=== PATIENT | female | born 1945 | race Hispanic/Latino ===

== ENCOUNTER → 2018-06-03 | Day surgery (SDC) | payer MEDICARE, OTHER ==
[2018-05-31 13:29] LABS: BASOPHILS % 0.4 % (0.0-1.0); EOSINOPHILS # (AUTO) 0.1 (0.0-0.4); EOSINOPHILS % 0.7 % (0.0-6.0); HEMOGLOBIN 11.5 g/dL (12.0-16.0); LYMPHOCYTES # (AUTO) 1.5 (1.0-3.2); LYMPHOCYTES % 19.8 % (18.0-39.1); MEAN CORPUSCULAR HEMOGLOBIN 31.5 pg (28-32); MEAN CORPUSCULAR HGB CONC 32.9 g/dL (31-35); MEAN CORPUSCULAR VOLUME 95.9 fL (81-99); MONOCYTES # (AUTO) 0.7 (0.2-0.8); MONOCYTES % 9.3 % (4.4-11.3); NEUTROPHILS # (AUTO) 5.1 (2.1-6.9); NEUTROPHILS % 69.5 % (38.7-80.0); PLATELET COUNT 266 x10e3/uL (140-360); RED BLOOD COUNT 3.65 x10e6/uL (3.6-5.1); RED CELL DISTRIBUTION WIDTH 14.6 % (11.7-14.4)
[2018-05-31 13:49] LABS: ANION GAP 17.2 mmol/L (8-16); CREATININE, SERUM 1.07 mg/dL (0.57-1.11); POTASSIUM 4.2 mmol/L (3.5-5.1)
--- NOTE | 2018-05-31 15:08 | Diagnostic Imaging Report ---
EXAMINATION: CHEST 2 VIEWS INDICATION: \S\PREOP \[id number] \S\[id number] COMPARISON: Chest radiograph 11/25/2015 FINDINGS: PA and lateral views TUBES and LINES: None. LUNGS: Lungs are well inflated. Subsegmental atelectasis in the right and left lower lobe, unchanged. There is no evidence of pneumonia or pulmonary edema. PLEURA: No pleural effusion or pneumothorax. Left pleural effusion has resolved. HEART AND MEDIASTINUM: The cardiomediastinal silhouette is unremarkable. BONES AND SOFT TISSUES: No acute osseous lesion. Soft tissues are unremarkable. Persistent mild elevation of the right hemidiaphragm. UPPER ABDOMEN: No free air under the diaphragm. IMPRESSION: No acute thoracic abnormality. There is stable bibasilar atelectasis. Signed by: Dr. Julissa Obando M.D. on 05/31/2018 3:04 PM
[~2018-06-03] MED LIST: ACETAMINOPHEN 1000 MG/100 ML IV ONE; ATORVASTATIN CA10 MG PO; BACTRIM 400-801 EACH PO; BUDEPRION SR150 MG PO; BUPIVACAINE HCL 0.5% INJ 30 ML VIAL INJ ONE; CEFAZOLIN SOD 1 GM VIAL ONE; CITALOPRAM HBR20 MG PO; DEXAMETHASONE SOD PHOS INJ 4 MG/ML VIAL ONE; DULERA 100 MCG/13 GM; EPHEDRINE SULFATE INJ 50 MG/10 ML SYR ONE; FENTANYL CITRATE/PF 100MCG/2 ML INJ ONE; GLYCOPYRROLATE INJ 1MG/ 5 ML SYR ONE; KEFLEX500 MG PO; LEVOTHYROXINE112 MCG PO; LIDOCAINE HCL 2% LOCAL INJ 5 ML SDV VIAL INJ ONE; LOSARTAN-HCTZ1 EAC3 PO; METOPROLOL TART25 MG PO; MIDAZOLAM HCL 2 MG/2 ML VIAL ONE; MONTELUKAST SOD10 MG PO; NORCO 5-325 TA1 EACH PO; ONDANSETRON HCL INJ 2 MG/ML VIAL ONE; OXYBUTYNIN CHLOR5 M1 PO; OXYBUTYNIN CHLOR5 MG PO; PANTOPRAZOLE SO40 MG PO; PROPOFOL IV EMULSION 10 MG/ML 20 ML VIAL ONE; SEVOFLURANE INHAL SOLN 250 ML PEN BTL ONE; SMZ/TMP PO; Z.0.CITALOPRAM HBR20 PO; Z.0.OMEPRAZOLE40 MG PO; Z.0.SYNTHROID125 MCG PO; [UNRECOGNIZED DRUG - OTHER]
[2018-06-03 13:40] VITALS: BP 154/70
--- NOTE | 2018-06-03 15:33 | Operative Report ---
DATE OF PROCEDURE: June 03, 2018 INSURANCE PROCESSOR: Ace Muniz PA-C The patient was brought to the operating room for induction of anesthesia. Throughout this case, my PA's assistance was necessary for retraction of soft tissue and positioning of the extremity. This allows for efficient and technically successful execution of the operation and is considered medically necessary. PREOPERATIVE DIAGNOSES 1. Other intra-articular fracture of the lower end of the right radius. 2. Age-related osteoporosis with associated pathologic fracture. POSTOPERATIVE DIAGNOSES 1. Other intra-articular fracture of the lower end of the right radius. 2. Age-related osteoporosis with associated pathologic fracture. PROCEDURE PERFORMED: Open reduction and internal fixation, right distal radius. INDICATIONS: The patient is a 72-year-old lady who has osteoporosis. She fell and sustained a fracture of her right distal radius. The findings and options have been discussed. The fracture is markedly displaced. We plan on an open reduction with internal fixation. The risks and benefits have been discussed with the patient and her son. They state they understand and wish to proceed. PROCEDURE IN DETAIL: The patient was brought to the operating room and placed under general anesthetic. Her right upper extremity was prepped and draped in a sterile manner. A preoperative time out was performed. The extremity was exsanguinated and a proximal tourniquet was inflated to 250 mmHg. A volar approach through the floor of the flexor carpi radialis tendon was performed. Care was taken to avoid injury to the palmar cutaneous branch of the median nerve. The pronator quadratus was elevated off of the distal radius. A self-retaining retractor was placed. A portion of the brachioradialis was released off of the radial styloid. A C-arm image intensifier was used to assist in obtaining a near anatomic reduction. A [employer] periarticular volar locking plate was then fixed onto the distal radius with a combination of compression and locking screws. Intraoperative x-rays confirmed anatomic reduction and good positioning of the hardware. The wound was irrigated and closed. The skin was closed with subcuticular Vicryl and nylon stitches. The skin was very thin and frail. A sterile bandage and a sugar-tong splint were applied. The patient was extubated and transported to the recovery room in stable condition. There was no blood loss and all needle and sponge counts were correct. Job#: [id number] PKU
--- OUTSIDE RECORDS SUMMARY | 2018-06-04 14:14 | XMS REPORT | Clinical Summary ---
Author Author [facility] Address Unknown Phone Unavailable Care Team Providers Care Supervisor [place] Name Role Phone Rory Dumont MD PCP Allergies No Known Allergies Current Medications Prescription Sig. Disp. Refills Start End Date Status Date levothyroxine (SYNTHROID, Take 112 mcg by mouth Active LEVOTHROID) 112 MCG every morning. tablet pantoprazole (PROTONIX) Take 40 mg by mouth Active 40 MG EC tablet daily. montelukast (SINGULAIR) Take 10 mg by mouth Active 10 mg tablet nightly. metoprolol tartrate Take 25 mg by mouth Active (LOPRESSOR) 25 MG tablet daily. citalopram (CeleXA) 20 MG Take 20 mg by mouth Active tablet daily. losartan (COZAAR) 100 MG Take 100 mg by mouth Active tablet daily. peg 400-propylene glycol Use one drop in the 1.5 mL 2 07/04/20 Active (SYSTANE, PROPYLENE morning both eyes and as 16 GLYCOL,) 0.4-0.3 % drops needed for dryness Active Problems Not on file Family History Medical History Relation Name Comments Diabetes Mother Stroke Mother Relation Name Status Comments Mother Social History Tobacco Use Types Packs/Day Years Used Date Never Smoker Alcohol Use Drinks/Week oz/Week Comments No Sex Assigned at Date Recorded Not on file Last Filed Vital Signs Not on file Plan of Treatment Health Maintenance Due Date Last Done Comments BREAST CANCER SCREENING 1993 COLON CANCER SCREENING 1993 SHINGRIX VACCINE (#1) 1993 ZOSTER VACCINE 2003 PNEUMOCOCCAL 2008 POLYSACCHARIDE VACCINE AGE 65 AND OVER PNEUMOCOCCAL-13 2008 INFLUENZA VACCINE 03/20/2018 Results Not on fileafter 06/02/2017 Insurance Payer Benefit Subscriber ID Type Phone Address Plan / Group [employer] xxxxxxxxxx Commercial [employer] [place] MEDICARE MEDICARE xxxxxxxxxx Medicare [place], [place] PART A AND B
--- OUTSIDE RECORDS SUMMARY | 2018-06-04 14:15 | XMS REPORT | Summary of Care ---
Author Author [facility] Organization [facility] Address Unknown Phone Unavailable Encounter HQ [email or web address]_erick(KAJAL) [id number] Date(s): 11/21/16 - 11/21/16 [facility] [id number] [place] [address]- Discharge Disposition: Home or Self Care Attending Physician: Abhishek Juares MD Admitting Physician: Abhishek Juares MD Vital Signs No data available for this section Problem List No data available for this section Allergies, Adverse Reactions, Alerts Substance Reaction Severity Status Bextra Active Cipro Active Medications No data available for this section Results No data available for this section Immunizations Given and Recorded Vaccine Date Status Refusal Reason influenza virus vaccine, inactivated 05/30/09 Given pneumococcal 23-valent vaccine 05/30/09 Given Procedures No data available for this section Social History Social History Type Response Smoking Status Never smoker; Type: Cigarettes; Exposure to Tobacco Smoke None; Cigarette Smoking Last 365 Days No; Reg Smoking Cessation Counseling No Assessment and Plan No data available for this section
--- OUTSIDE RECORDS SUMMARY | 2018-06-04 14:15 | XMS REPORT | Summary of Care ---
Author Author [facility] Address Unknown Phone Unavailable Encounter HQ Caleb(FIN) [id number] Date(s): 01/03/18 - 01/10/18 [facility] [address] [place] [address]- [phone] Encounter Diagnosis Displaced intertrochanteric fracture of unspecified femur, initial encounter for closed fracture (Final) - Discharge Disposition: Home or Self Care Attending Physician: Michael Reyes MD Admitting Physician: Michael Reyes MD Vital Signs 1 2 3 Most recent to oldest [Reference Range]: 170.18 cm (01/03/18 8:56 PM) 170.18 cm (01/03/18 8:55 PM) Height 98.0 DegF (01/10/18 7:30 AM) 97.9 DegF (01/09/18 8:04 PM) 98.2 DegF (01/09/18 3:13 PM) Temperature Oral [96.4-99.1 DegF] 124/71 mmHg (01/09/18 8:04 PM) 116/64 mmHg (01/09/18 3:13 PM) Blood Pressure [90-140/60-90 mmHg] 113 mmHg (01/10/18 7:30 AM) Systolic Blood Pressure [90-140 mmHg] 74 mmHg (01/10/18 7:30 AM) Diastolic Blood Pressure [60-90 mmHg] 18 BRMIN (01/10/18 7:30 AM) 16 BRMIN (01/09/18 8:04 PM) 16 BRMIN (01/09/18 3:13 PM) Respiratory Rate [14-20 BRMIN] 70 bpm (01/10/18 7:30 AM) 63 bpm (01/09/18 8:04 PM) 66 bpm (01/09/18 3:13 PM) Peripheral Pulse Rate [60-100 bpm] 84.182 kg (01/03/18 8:56 PM) 78.636 kg (01/03/18 8:55 PM) Weight 29.07 m2 (01/03/18 8:56 PM) 27.15 m2 (01/03/18 8:55 PM) Body Mass Index Problem List Condition Effective Dates Status Health Status Informant Renal Active insufficiency(Confir med) Femoral neck Active fracture(Confirmed) Hypertension(Confirm Active ed) Hypothyroidism(Confi Active rmed) Pain due to total Active hip replacement(Confirme d) Vitamin D Active deficiency(Confirmed ) Vocal cord Active cyst(Confirmed) Allergies, Adverse Reactions, Alerts Substance Reaction Severity Status Cipro Active Bactrim Active Bextra Active Medications acetaminophen 500 mg oral tablet 1,000 mg=2 tab, PO, TID, 0 Refill(s) Start Date: 01/10/18 Status: Ordered aspirin 325 mg tablet, enteric coated 325 mg=1 tab, PO, Daily, # 7 tab, 0 Refill(s) Start Date: 01/10/18 Stop Date: 01/17/18 Status: Ordered atorvastatin 10 mg, 1 tab, Route: PO, Drug form: TAB, Daily, Dosing Weight 84.182, kg, Start date: 01/05/18 9:00:00 CDT, Duration: 30 day, Stop date: 02/03/18 9:00:00 CDT Notes: (Same As: Lipitor) Start Date: 01/05/18 Stop Date: 01/10/18 Status: Discontinued atorvastatin 10 mg oral tablet 10 mg=1 tab, PO, Daily, # 30 tab, 0 Refill(s) Start Date: 01/10/18 Stop Date: 02/09/18 Status: Ordered citalopram 20 mg, 2 tab, Route: PO, Drug form: TAB, Daily, Dosing Weight 84.182, kg, Start date: 01/05/18 9:00:00 CDT, Duration: 30 day, Stop date: 02/03/18 9:00:00 CDT Start Date: 01/05/18 Stop Date: 01/10/18 Status: Discontinued citalopram 20 mg oral tablet 20 mg=1 tab, PO, Daily, # 30 tab, 0 Refill(s) Start Date: 01/10/18 Stop Date: 02/09/18 Status: Ordered Levothroid 100 microgram, 1 tab, Route: PO, Drug form: TAB, [id number], Dosing Weight 81.818, k g, Start date: 01/04/18 6:30:00 CDT, Duration: 30 day, Stop date: 02/02/18 6:30: 00 CDT Notes: Take 1 hour before or 2 hours after meal; Enteral feeds may interefere wi th the absorption of this medication. (Same as:Levothroid, Synthroid) Start Date: 01/04/18 Stop Date: 01/10/18 Status: Discontinued levothyroxine 100 mcg (0.1 mg) oral tablet 100 microgram=1 tab, PO, Q630AM, # 30 tab, 0 Refill(s) Start Date: 01/10/18 Stop Date: 02/09/18 Status: Ordered lidocaine topical patch (5% film) 1 patch, Route: TOP, Daily, Drug form: FILM, Start date: 01/04/18 9:00:00 CDT, D uration: 30 day, Stop date: 02/02/18 9:00:00 CDT Notes: Apply only once for up to 12 hours in [id number] period (12 hours on and 12 hours off).(Same as: Lidoderm)"Remove old patch before application of new patch" Start Date: 01/04/18 Stop Date: 01/10/18 Status: Discontinued losartan 100 mg, 2 tab, Route: PO, Drug form: TAB, Daily, Dosing Weight 84.182, kg, Start date: 01/05/18 9:00:00 CDT, Duration: 30 day, Stop date: 02/03/18 9:00:00 CDT Notes: (Same as: Cozaar) Start Date: 01/05/18 Stop Date: 01/10/18 Status: Discontinued losartan 100 mg oral tablet 100 mg=1 tab, PO, Daily, # 30 tab, 0 Refill(s) Start Date: 01/10/18 Stop Date: 02/09/18 Status: Ordered Lovenox 40 mg, 0.4 mL, Route: SUB-Q, Drug form: INJ, [id number], Dosing Weight 81.818, kg, Start date: 01/04/18 12:00:00 CDT, Duration: 14 day, Stop date: 01/17/18 12:00: 00 CDT Notes: (Same as: Lovenox) Start Date: 01/04/18 Stop Date: 01/10/18 Status: Discontinued metoprolol 25 mg oral tablet, extended release 25 mg=1 tab, PO, Daily, # 30 tab, 0 Refill(s) Start Date: 01/10/18 Stop Date: 02/09/18 Status: Ordered metoprolol extended release 25 mg, 1 tab, Route: PO, Drug form: ERTAB, Daily, Start date: 01/05/18 9:00:00 C DT, Duration: 30 day, Stop date: 02/03/18 9:00:00 CDT Notes: (Same as: Toprol XL) Do Not Crush Start Date: 01/05/18 Stop Date: 01/10/18 Status: Discontinued Os-Jose 500 500 mg, 1 tab, Route: PO, Drug form: TAB, BID, Dosing Weight 81.818, kg, Start d ate: 01/04/18 9:00:00 CDT, Duration: 30 day, Stop date: 02/02/18 17:00:00 CDT Notes: 500mg elemental [id number] calcium carbonate. Contains 500mg element al calcium. (Same As: OsCal 500) Start Date: 01/04/18 Stop Date: 01/10/18 Status: Discontinued Physical Therapy See Instructions, MISC, ONCALL, Evaluate and Treat 2-3 times per week for 4-6 we eks, # 1 ea, 0 Refill(s) Start Date: 01/10/18 Status: Ordered pneumococcal 13-valent vaccine 0.5 mL, Route: IM, Drug Form: INJ, ONCALL, Start date: 01/03/18 22:33:09 CDT, St op date: 02/02/18 22:28:09 CDT Notes: Shake well prior to use (Same as: Prevnar 13) Start Date: 01/03/18 Stop Date: 01/10/18 Status: Discontinued remove patch 1 patch, Route: TOP, Bedtime, Drug form: ERFILM, Start date: 01/04/18 21:00:00 C DT, Duration: 30 day, Stop date: 02/02/18 21:00:00 CDT Notes: Remove patch 12 hours after application each day. Start Date: 01/04/18 Stop Date: 01/10/18 Status: Discontinued Senokot S 1 tab, Route: PO, Drug Form: TAB, Dosing Weight 81.818, kg, BID, Start date: 9:00:00 CDT, Duration: 30 day, Stop date: 02/02/18 17:00:00 CDT Notes: (Same as Senokot-S) Equiv. to Skylar-Colace. Start Date: 01/04/18 Stop Date: 01/10/18 Status: Discontinued tramadol 50 mg oral tablet 50 mg=1 tab, PO, Q4H, PRN Pain Score 7-10, X 5 day, # 20 tab, 0 Refill(s) Start Date: 01/10/18 Stop Date: 01/15/18 Status: Ordered tramadol 50 mg oral tablet 50 mg, 1 tab, Route: PO, Drug form: TAB, Q4H, Dosing Weight 81.818, kg, PRN Pain Score 7-10, Start date: 01/03/18 22:14:00 CDT, Duration: 30 day, Stop date: 22:13:00 CDT Notes: Not to exceed 400mg/day. (Same As: Ultram) Start Date: 01/03/18 Stop Date: 01/10/18 Status: Discontinued tramadol 50 mg oral tablet 25 mg, 0.5 tab, Route: PO, Drug form: TAB, Q4H, Dosing Weight 81.818, kg, PRN Pa in Score 4-6, Start date: 01/03/18 22:14:00 CDT, Duration: 30 day, Stop date: 22:13:00 CDT Notes: Not to exceed 400mg/day. (Same As: Ultram) Start Date: 01/03/18 Stop Date: 01/10/18 Status: Discontinued trazodone 50 mg, 1 tab, Route: PO, Drug form: TAB, Bedtime, Dosing Weight 81.818, kg, PRN Insomnia, Start date: 01/03/18 19:51:00 CDT, Duration: 30 day, Stop date: 19:50:00 CDT Notes: (Same As: Desyrel) Start Date: 01/03/18 Stop Date: 01/10/18 Status: Discontinued Tylenol 650 mg, 2 tab, Route: PO, Drug form: TAB, Q4H, Dosing Weight 81.818, kg, PRN Domo n 1-3/Temp > 100.4 F, Start date: 01/03/18 21:28:00 CDT, Duration: 30 day, Stop date: 02/02/18 21:27:00 CDT Notes: Do not exceed 4 gm/day. (Same as: Tylenol) Start Date: 01/03/18 Stop Date: 01/10/18 Status: Discontinued Tylenol 1,000 mg, 2 tab, Route: PO, Drug form: TAB, TID, Dosing Weight 81.818, kg, Start date: 01/04/18 6:00:00 CDT, Duration: 30 day, Stop date: 02/02/18 18:00:00 CDT Notes: Max acetaminophen 4000 mg/day (4 gm/day). (Same as: Tylenol Extra Streng th) Start Date: 01/04/18 Stop Date: 01/10/18 Status: Discontinued Vitamin D2 50,000 IntlUnit, 1 cap, Route: PO, Drug form: CAP, Q7D, Dosing Weight 81.818, kg , Start date: 01/09/18 9:00:00 CDT, Duration: 30 day, Stop date: 02/06/18 9:00:0 0 CDT Notes: (Same as: Vitamin D) "Do Not Crush" Start Date: 01/09/18 Stop Date: 01/05/18 Status: Canceled Vitamin D3 2000 intl units oral capsule 2,000 IntlUnit=1 cap, PO, Daily, # 30 cap, 0 Refill(s) Start Date: 01/10/18 Stop Date: 02/09/18 Status: Ordered Vitamin D3 2000 intl units oral tablet 2,000 IntlUnit, 2 tab, Route: PO, Drug form: TAB, Daily, Dosing Weight 84.182, k g, Start date: 01/06/18 9:00:00 CDT, Duration: 30 day, Stop date: 02/04/18 9:00: 00 CDT Notes: Same as : Vitamin D3 Start Date: 01/06/18 Stop Date: 01/10/18 Status: Discontinued Results ELECTROLYTES Most recent to 1 2 oldest [Reference Range]: Sodium Lvl [135-145 139 mEq/L 142 mEq/L mEq/L] (01/07/18 5:50 AM) (01/04/18 5:15 AM) Potassium Lvl 4.7 mEq/L 4.0 mEq/L [3.5-5.1 mEq/L] (01/07/18 5:50 AM) (01/04/18 5:15 AM) Chloride Lvl [95-109 104 mEq/L 105 mEq/L mEq/L] (01/07/18 5:50 AM) (01/04/18 5:15 AM) CO2 [24-32 mEq/L] 32 mEq/L 31 mEq/L (01/07/18 5:50 AM) (01/04/18 5:15 AM) AGAP [10.0-20.0 7.7 mEq/L 10.0 mEq/L mEq/L] *LOW* (01/04/18 5:15 AM) (01/07/18 5:50 AM) CHEM PANEL Most recent to 1 2 oldest [Reference Range]: Creatinine Lvl 0.92 mg/dL 0.74 mg/dL [0.50-1.40 mg/dL] (01/07/18 5:50 AM) (01/04/18 5:15 AM) eGFR 61 mL/min/1.73m2 1 80 mL/min/1.73m2 2 *NA* *NA* (01/07/18 5:50 AM) (01/04/18 5:15 AM) BUN [7-22 mg/dL] 22 mg/dL 12 mg/dL (01/07/18 5:50 AM) (01/04/18 5:15 AM) Glucose Lvl [70-99 97 mg/dL 98 mg/dL mg/dL] (01/07/18 5:50 AM) (01/04/18 5:15 AM) Albumin Lvl [3.5-5.0 2.2 g/dL g/dL] *LOW* (01/04/18 5:15 AM) Calcium Lvl 8.9 mg/dL 8.3 mg/dL [8.5-10.5 mg/dL] (01/07/18 5:50 AM) *LOW* (01/04/18 5:15 AM) Phosphorus [2.5-4.5 2.4 mg/dL mg/dL] *LOW* (01/04/18 5:15 AM) Magnesium Lvl 1.9 mg/dL [1.8-2.4 mg/dL] (01/04/18 5:15 AM) Vitamin D, 25-OH, 41.4 ng/mL Total [30.0-100.0 (01/04/18 5:15 AM) ng/mL] 1Result Comment: The eGFR is calculated using the CKD-EPI formula. In most young, healthy individuals the eGFR will be >90 mL/min/1.73m2. The eGFR declines with age. An eGFR of 60-89 may be normal in some populations, particularly the elderly, for whom the CKD-EPI formula has not been extensively validated. Use of the eGFR is not recommended in the following populations: Individuals with unstable creatinine concentrations, including patients and those with serious co-morbid conditions. Patients with extremes in muscle mass or diet. The data above are obtained from the National Kidney Disease Education Program ( NKDEP) which additionally recommends that when the eGFR is used in patients with extremes of body mass index for purposes of drug dosing, the eGFR should be mul tiplied by the estimated BMI. 2Result Comment: The eGFR is calculated using the CKD-EPI formula. In most young, healthy individuals the eGFR will be >90 mL/min/1.73m2. The eGFR declines with age. An eGFR of 60-89 may be normal in some populations, particularly the elderly, for whom the CKD-EPI formula has not been extensively validated. Use of the eGFR is not recommended in the following populations: Individuals with unstable creatinine concentrations, including patients and those with serious co-morbid conditions. Patients with extremes in muscle mass or diet. The data above are obtained from the National Kidney Disease Education Program ( NKDEP) which additionally recommends that when the eGFR is used in patients with extremes of body mass index for purposes of drug dosing, the eGFR should be mul tiplied by the estimated BMI. SPECIAL CHEMISTRY Most recent to 1 2 oldest [Reference Range]: Hgb A1C [<=5.6 %] 6.2 % *HI* (01/04/18 5:15 AM) URINE AND STOOL Most recent to 1 2 oldest [Reference Range]: UA Turbidity [Clear] Clear (01/09/18 6:30 PM) UA Color Ltyellow *NA* (01/09/18 6:30 PM) UA pH [5.0-8.0] 7.0 (01/09/18 6:30 PM) UA Spec Grav 1.006 [<=1.030] (01/09/18 6:30 PM) UA Glucose [Negative Negative mg/dL mg/dL] *NA* (01/09/18 6:30 PM) UA Blood [Negative] Negative (01/09/18 6:30 PM) UA Ketones [Negative Negative mg/dL mg/dL] *NA* (01/09/18 6:30 PM) UA Protein [Negative Negative mg/dL mg/dL] (01/09/18 6:30 PM) UA Urobilinogen <=1.0 mg/dL [0.1-1.0 mg/dL] *NA* (01/09/18 6:30 PM) UA Bili [Negative] Negative *NA* (01/09/18 6:30 PM) UA Leuk Est Negative [Negative] (01/09/18 6:30 PM) UA Nitrite Negative [Negative] (01/09/18 6:30 PM) UA WBC [0-5 /HPF] 4 /HPF (01/09/18 6:30 PM) UA Sq Epi None Seen *NA* (01/09/18 6:30 PM) IMMUNOLOGY Most recent to 1 2 oldest [Reference Range]: Prealbumin 8.2 mg/dL 9.9 mg/dL [18.0-45.0 mg/dL] *LOW* *LOW* (01/04/18 5:15 AM) (01/03/18 9:17 PM) HEMATOLOGY Most recent to 1 2 oldest [Reference Range]: WBC [3.7-10.4 K/CMM] 4.5 K/CMM 4.6 K/CMM (01/07/18 5:50 AM) (01/04/18 5:15 AM) RBC [4.20-5.40 2.85 M/CMM 2.75 M/CMM M/CMM] *LOW* *LOW* (01/07/18 5:50 AM) (01/04/18 5:15 AM) Hgb [12.0-16.0 g/dL] 9.2 g/dL 9.2 g/dL *LOW* *LOW* (01/07/18 5:50 AM) (01/04/18 5:15 AM) Hct [36.0-48.0 %] 27.6 % 26.7 % *LOW* *LOW* (01/07/18 5:50 AM) (01/04/18 5:15 AM) MCV [80.0-98.0 fL] 97.0 fL 97.1 fL (01/07/18 5:50 AM) (01/04/18 5:15 AM) MCH [27.0-31.0 pg] 32.5 pg 33.4 pg *HI* *HI* (01/07/18 5:50 AM) (01/04/18 5:15 AM) MCHC [32.0-36.0 33.5 g/dL 34.4 g/dL g/dL] (01/07/18 5:50 AM) (01/04/18 5:15 AM) RDW [11.5-14.5 %] 15.2 % 14.8 % *HI* *HI* (01/07/18 5:50 AM) (01/04/18 5:15 AM) MPV [7.4-10.4 fL] 7.3 fL 7.2 fL *LOW* *LOW* (01/07/18 5:50 AM) (01/04/18 5:15 AM) Platelet [133-450 230 K/CMM 166 K/CMM K/CMM] (01/07/18 5:50 AM) (01/04/18 5:15 AM) Segs [45.0-75.0 %] 68.0 % 73.5 % (01/07/18 5:50 AM) (01/04/18 5:15 AM) Lymphocytes 19.0 % 15.4 % [20.0-40.0 %] *LOW* *LOW* (01/07/18 5:50 AM) (01/04/18 5:15 AM) Monocytes [2.0-12.0 8.2 % 8.4 % %] (01/07/18 5:50 AM) (01/04/18 5:15 AM) Eosinophils [0.0-4.0 4.3 % 2.4 % %] *HI* (01/04/18 5:15 AM) (01/07/18 5:50 AM) Basophils [0.0-1.0 0.5 % 0.3 % %] (01/07/18 5:50 AM) (01/04/18 5:15 AM) Segs-Bands # 3.1 K/CMM 3.4 K/CMM [1.5-8.1 K/CMM] (01/07/18 5:50 AM) (01/04/18 5:15 AM) Lymphocytes # 0.9 K/CMM 0.7 K/CMM [1.0-5.5 K/CMM] *LOW* *LOW* (01/07/18 5:50 AM) (01/04/18 5:15 AM) Monocytes # [0.0-0.8 0.4 K/CMM 0.4 K/CMM K/CMM] (01/07/18 5:50 AM) (01/04/18 5:15 AM) Eosinophils # 0.2 K/CMM 0.1 K/CMM [0.0-0.5 K/CMM] (01/07/18 5:50 AM) (01/04/18 5:15 AM) PT [12.0-14.7 14.4 seconds seconds] (01/04/18 5:15 AM) INR [0.85-1.17] 1.12 (01/04/18 5:15 AM) PTT [22.9-35.8 34.3 seconds seconds] (01/04/18 5:15 AM) Immunizations Given and Recorded Vaccine Date Status Refusal Reason influenza virus vaccine, inactivated 05/30/09 Given pneumococcal 23-valent vaccine 05/30/09 Given Not Given Vaccine Date Status Refusal Reason pneumococcal 13-valent vaccine 01/02/18 Not Given Patient Refuses Procedures Procedure Date Related Diagnosis Body Site Status Cystectomy 12/12/17 Completed Knee replacement Completed Social History Social History Type Response Substance Abuse Use: None. Sexual Sexually active: No. Exercise Exercise duration: 90. Exercise frequency: 3-4 times/week. Self assessment: Good condition. Exercise type: Walking. Employment/School Status: Retired. Alcohol Never Smoking Status Never smoker; Type: Cigarettes; Exposure to Tobacco Smoke None; Cigarette Smoking Last 365 Days No; Reg Smoking Cessation Counseling No entered on: 01/03/18 Assessment and Plan Extracted from: Title: Clinical Document Author: Michael Reyes MD Date: 01/09/18 PM&R PrOGRESS NOTE CHIEF COMPLAINT IDENTIFICATION: A 72-year-old lady being seen for ongoing rehabilitation needs after having an acute traumatic left hip femoral neck fracture status post left hip hemiarthroplasty. INTERVAL EVENTS AND SUBJECTIVE All interval events reviewed. No new fevers, chills, nausea, vomiting, chest pain, palpitations, headaches, or dizziness. Pain is much improved. No new bowel or bladder complaints. Ambulation improving. No headaches or dizziness. Overall, feeling very well. PHYSICAL EXAMINATION: Vitals and Temp: VitalsTmp(F)[id number] 01/09 07:[id number]--- 01/08 20:[id number]--- 01/08 16:[id number]--- 01/08 08:[id number]--- 01/07 20:[id number]--- 24 Hr Tmax: 98.7F (37.06c) at 01/09 07:30Vital Signs are the last 5 in the past 48 hours. GENERAL: Heavy-set, no apparent distress, sitting at the bedside. PSYCH: She is alert, oriented, appropriate, pleasant and cooperative. HEENT: Pupils equal, round, reactive to light. Extraocular muscles intact. Moist mucous membranes. CARDIOVASCULAR: 2+ bilateral upper extremity pulses. Regular rate and rhythm. PULMONARY: Respirations unlabored without dyspnea. ABDOMEN: Doughy, nontender, nondistended. GENITOURINARY: No Giraldo. SKIN: No new breakdown or rashes hip incision clean, dry, intact. NEUROMUSCULOSKELETAL: Cranial nerves II-XII are intact. Strength 4+/5 in the bilateral upper extremities, 4/5 in the right lower extremity, 4/5 with left hip flexion, knee extension, 4/5, ankle dorsiflexion, great toe extension. LABORATORY DATA: Labs (Last four charted values) WBC 4.5(JANUARY 07)4.6(JANUARY 04) Hgb L 9.2(JANUARY 07)L 9.2(JANUARY 04)10.1(JANUARY 03) Hct L 27.6(JANUARY 07)L 26.7(JANUARY 04) Plt 230(JANUARY 07)166(JANUARY 04) Na 139(JANUARY 07)142(JANUARY 04) K 4.7(JANUARY 07)4.0(JANUARY 04) CO2 32(JANUARY 07)31(JANUARY 04) Cl 104(JANUARY 07)105(JANUARY 04) Cr 0.92(JANUARY 07)0.74(JANUARY 04) BUN 22(JANUARY 07)12(JANUARY 04) Glucose Random 97(JANUARY 07)98(JANUARY 04) Mg 1.9(JANUARY 04) Phos L 2.4(JANUARY 04) Ca 8.9(JANUARY 07)L 8.3(JANUARY 04) PT 14.4(JANUARY 04) INR 1.12(JANUARY 04) PTT 34.3(JANUARY 04) DIAGNOSTIC IMAGING: No new imaging. ASSESSMENT AND PLAN: A 72-year-old lady with: 1. Acute traumatic left hip femoral neck fracture: Dr. Vern Mars operating surgeon. Weightbearing as tolerated. Continue hip precautions. Continue DVT prophylaxis with Lovenox. Continue vitamin D supplementation. cont. the rehabilitation therapies as below. 2. Acute postoperative left hip pain: Much better controlled. Will continue ice, positioning, range of motion, stretching. Continue scheduled Tylenol for generalized pain control and tramadol for more severe pain. Continue the lidocaine patch. Continue ice, positioning, range of motion, stretching. 4. Acute postoperative blood loss anemia: Hemoglobin is stable. Monitor hemodynamics and for orthostasis. Continue nutrition and fluid optimization. No evidence for ongoing blood loss. 5. Rehabilitation for deficits in mobility, ADLs, IADLs, weakness, incoordination and balance due to the above: All interval therapy notes reviewed. -Team meeting tomorrow. -Will be targeting mod indep at discharge. -Will likely be ready for discharge on 01/10. -Her sister may be coming to stay with her. -Will plan for rolling walker at home. Ordered through home health. -Continue PT and Ot. ESTIMATED LENGTH OF STAY: 01/10 to home with family. Extracted from: Title: Clinical Document Author: Gregory Estrella MD Date: 01/04/18 Hospitalist consult note [facility] Gregory Estrella MD SUBJECTIVE: Patient seen and examined, events reviewed HISTORY OF PRESENT ILLNESS: REVIEW OF SYSTEMS: She denies any headaches or dizziness at this time. She denies any fevers or chills. She denies any nausea or vomiting. She denies any neck pain or stiffness. She denies any chest pain or pressure or palpitations. She denies any shortness of breath. She denies any abdominal pain or any changes in her bowel or bladder habits. She denies any rashes or any focal motor or sensory deficits. She denies any depression or anxiety, and all other systems have been reviewed and are negative except as listed. PAST MEDICAL HISTORY: Hypertension Hypothyroidism Left hip femoral neck fracture Postoperative anemia of acute blood loss Bilateral knee replacement Bladder suspension surgery MEDICATIONS: Please see nursing medical reconciliation form. ALLERGIES: Bactrim, Cipro, Bextra. FAMILY HISTORY: Has been reviewed and is noncontributory to this current admission. SOCIAL HISTORY: Denies any tobacco, alcohol or any illicit drug abuse. OBJECTIVE: Vitals and Temp: VitalsTmp(F)[id number] 01/04 07:5998.497205/7216------ 01/04 06:56 1696 21% 01/03 21:02 1296 2.0L/m 01/03 20:[id number]--- 24 Hr Tmax: 98.5F (36.94c) at 01/03 20:00Vital Signs are the last 5 in the past 48 hours. Input/Output RecordInOutBal 12/1823hr Tot 0 0 0 1724hr Tot 0 400 -400 Labs (Last four charted values) WBC 4.6(JANUARY 04) Hgb L 9.2(JANUARY 04)10.1(JANUARY 03) Hct L 26.7(JANUARY 04) Plt 166(JANUARY 04) Na 142(JANUARY 04) K 4.0(JANUARY 04) CO2 31(JANUARY 04) Cl 105(JANUARY 04) Cr 0.74(JANUARY 04) BUN 12(JANUARY 04) Glucose Random 98(JANUARY 04) Mg 1.9(JANUARY 04) Phos L 2.4(JANUARY 04) Ca L 8.3(JANUARY 04) PT 14.4(JANUARY 04) INR 1.12(JANUARY 04) PTT 34.3(JANUARY 04) MEDICATIONS Scheduled Meds (12):acetaminophen (Tylenol), atorvastatin, calcium carbonate (Os-Jose 500), citalopram, docusate-senna (Senokot S), enoxaparin (Lovenox), ergocalciferol (Vitamin D2), levothyroxine (Levothroid), lidocaine topical (lidocaine topical patch (5% film)), losartan, metoprolol (metoprolol extended release), remove patch Unscheduled Meds (1):pneumococcal 13-valent vaccine PRN Meds (4):acetaminophen (Tylenol), tramadol (tramadol 50 mg oral tablet), tramadol (tramadol 50 mg oral tablet), trazodone One Time Meds (1):(Completed) bisacodyl (Dulcolax Laxative) Continuous Infusions: None ASSESSMENT & EXAM: GENERAL: In no apparent distress at this time. HEENT: Normocephalic, atraumatic. Pupils equal and reactive to light. NECK: Supple. No jugular venous distention or bruits. CARDIOVASCULAR: Regular rate and rhythm, S1, S2 positive, no murmurs, rubs or gallops. LUNGS: Clear to auscultation bilateral. No rales, rhonchi or wheezes. GASTROINTESTINAL: Soft, nontender, nondistended, positive bowel sounds, no organomegaly. EXTREMITIES: No clubbing, cyanosis or edema. NEUROLOGICAL: Intact. No gross deficits noted. SKIN: no rashes noted. DIAGNOSES & PROBLEMS: Traumatic left hip femoral neck fracture Postoperative anemia of acute blood loss Hypothyroidism Hypertension PLAN & TREATMENT: Continue postoperative management per orthopedics We will continue management of medical disease Follow-up on H&H DVT prophylaxis Continue with therapy per PM&R following closely PT/OT as tolerated Pain management Further recommendations will be based on this patients clinical course.
--- OUTSIDE RECORDS SUMMARY | 2018-06-04 14:15 | XMS REPORT | Summary of Care ---
Author Author [facility] Organization [facility] Address Unknown Phone Unavailable Encounter HQ Caleb(KAJAL) [id number] Date(s): 11/13/15 - 11/16/15 [facility] [address] [place] [address]- Discharge Disposition: Home Attending Physician: Santiago Holt MD Admitting Physician: Santiago Holt MD Vital Signs 1 2 3 Most recent to oldest [Reference Range]: 172.72 cm (11/14/15 4:00 AM) 165.1 cm (11/13/15 4:28 PM) Height 99.0 DegF (11/16/15 12:48 PM) 97.5 DegF (11/16/15 7:49 AM) 98.0 DegF (11/16/15 4:00 AM) Temperature Oral [96.4-99.1 DegF] 147/74 mmHg *HI* (11/16/15 12:48 PM) 152/72 mmHg *HI* (11/16/15 7:49 AM) 128/73 mmHg (11/16/15 4:00 AM) Blood Pressure [90-140/60-90 mmHg] 16 BRMIN (11/16/15 12:48 PM) 16 BRMIN (11/16/15 7:49 AM) 12 BRMIN *LOW* (11/16/15 6:40 AM) Respiratory Rate [14-20 BRMIN] 70 bpm (11/16/15 12:48 PM) 67 bpm (11/16/15 7:49 AM) 76 bpm (11/16/15 4:00 AM) Peripheral Pulse Rate [60-100 bpm] 81.08 kg (11/14/15 4:00 AM) 79.091 kg (11/13/15 4:28 PM) Weight 27.18 m2 (11/14/15 4:00 AM) 29.02 m2 (11/13/15 4:28 PM) Body Mass Index Problem List No data available for this section Allergies, Adverse Reactions, Alerts Substance Reaction Severity Status Bextra Active Cipro Active Medications acetaminophen 325 mg, 1 tab, Route: PO, Drug form: TAB, Q4H, Dosing Weight 81.08, kg, PRN Pain Score 1-3, Start date: 11/14/15 4:19:00, Duration: 30 day, Stop date: 12/14/15 4:18:00 Notes: Do not exceed 4 gm/day. (Same as: Tylenol) Start Date: 11/14/15 Stop Date: 11/16/15 Status: Discontinued acetaminophen-hydrocodone 325 mg-10 mg oral tablet 1 tab, Route: PO, Drug Form: TAB, Dosing Weight 79.091, kg, Q4H, PRN Pain Score 1-3, Start date: 11/14/15 4:19:00, Duration: 30 day, Stop date: 12/14/15 4:18:00 Notes: Do not exceed 4gm/day of acetaminophen. (Same as: Rice 325/10) Start Date: 11/14/15 Stop Date: 11/16/15 Status: Discontinued acetaminophen-hydrocodone 325 mg-10 mg oral tablet 1 tab, PO, Q4H, PRN Pain Score 1-3, 0 Refill(s) Start Date: 11/16/15 Status: Ordered atropine 0.5 mg, 5 mL, Route: IVP, Drug form: INJ, PRN, PRN Bradycardia, Start date: 10/19 04/04 0:07:00, Duration: 30 day, Stop date: 12/15/15 0:06:00 Start Date: 11/15/15 Stop Date: 11/16/15 Status: Discontinued citalopram 10 mg, 1 tab, Route: PO, Drug form: TAB, Daily, Dosing Weight 81.08, kg, Start d ate: 11/15/15 9:00:00, Duration: 30 day, Stop date: 12/14/15 9:00:00 Start Date: 11/15/15 Stop Date: 11/16/15 Status: Discontinued citalopram 20 mg, PO, Daily, 0 Refill(s) Start Date: 11/14/15 Stop Date: 12/14/15 Status: Ordered Colace 100 mg oral capsule 100 mg=1 cap, PO, BID, PRN Constipation, # 20 cap, 0 Refill(s) Start Date: 11/16/15 Stop Date: 11/26/15 Status: Ordered levothyroxine 112 microgram, 1 tab, Route: PO, Drug form: TAB, Q630AM, Dosing Weight 81.08, kg , Start date: 11/15/15 6:30:00, Duration: 30 day, Stop date: 12/14/15 6:30:00 Notes: Take 1 hour before or 2 hours after meal; Enteral feeds may interefere wi th the absorption of this medication.(Same as:Levothroid) Start Date: 11/15/15 Stop Date: 11/16/15 Status: Discontinued levothyroxine 112 microgram, PO, Daily, 0 Refill(s) Start Date: 11/14/15 Stop Date: 12/14/15 Status: Ordered lidocaine topical patch (5% film) 1 patch, Route: TOP, Daily, Drug form: FILM, Start date: 11/14/15 9:00:00, Durat ion: 30 day, Stop date: 12/13/15 9:00:00 Notes: Apply only once for up to 12 hours in [id number] period (12 hours on and 12 hours off).(Same as: Lidoderm)"Remove old patch before application of new patch" Start Date: 11/14/15 Stop Date: 11/16/15 Status: Discontinued losartan 100 mg, 2 tab, Route: PO, Drug form: TAB, Daily, Dosing Weight 81.08, kg, Start date: 11/15/15 21:00:00, Duration: 30 day, Stop date: 12/15/15 9:00:00 Notes: (Same as: Cozaar) Start Date: 11/15/15 Stop Date: 11/16/15 Status: Discontinued losartan 100 mg, Route: PO, Drug form: TAB, Daily, Dosing Weight 81.08, kg, Start date: 0 11/15/15 9:00:00, Duration: 30 day, Stop date: 12/14/15 9:00:00 Start Date: 11/15/15 Stop Date: 11/14/15 Status: Canceled losartan 100 mg, PO, Daily, 0 Refill(s) Start Date: 11/14/15 Stop Date: 12/14/15 Status: Ordered losartan 100 mg, 2 tab, Route: PO, Drug form: TAB, Daily, Dosing Weight 81.08, kg, Start date: 11/16/15 9:00:00, Duration: 30 day, Stop date: 12/15/15 9:00:00 Notes: (Same as: Humble) Start Date: 11/16/15 Stop Date: 11/15/15 Status: Canceled montelukast 10 mg, PO, QPM, 0 Refill(s) Start Date: 11/14/15 Status: Ordered morphine Sulfate 4 mg, 2 mL, Route: IVP, Drug form: INJ, ONCE, Dosing Weight 79.091, kg, Priority : STAT, Start date: 11/13/15 21:26:00, Stop date: 11/13/15 21:26:00 Notes: (Same as:MORPhine Sulfate) Start Date: 11/13/15 Stop Date: 11/13/15 Status: Completed morphine Sulfate 4 mg, 2 mL, Route: IVP, Drug form: INJ, Q4H, Dosing Weight 81.08, kg, PRN Pain S core 7-10, Start date: 11/14/15 4:19:00, Duration: 30 day, Stop date: 12/14/15 4 :18:00 Notes: (Same as:MORPhine Sulfate) Start Date: 11/14/15 Stop Date: 11/16/15 Status: Discontinued nitroglycerin 0.4 mg sublingual tablet 0.4 mg, 1 tab, Route: SL, Drug form: TAB, Q5Min, PRN Chest Pain, Start date: 0:07:00, Duration: 30 day, Stop date: 12/15/15 0:06:00 Notes: (Same as:Nitroquick, Nitrostat)"Do Not Crush" Sublingual tablet Start Date: 11/15/15 Stop Date: 11/16/15 Status: Discontinued normal saline 0.9% IV 1,000 mL 1,000 mL, Rate: 125 ml/hr, Infuse over: 8 hr, Route: IV, Dosing Weight 81.08 kg, Total Volume: 1,000, Start date: 11/14/15 8:35:00, Duration: 30 day, Stop date: 12/14/15 8:34:00 Start Date: 11/14/15 Stop Date: 11/15/15 Status: Discontinued omeprazole 40 mg, PO, BID, 0 Refill(s) Start Date: 11/14/15 Status: Ordered ondansetron 4 mg, 2 mL, Route: IVP, Drug form: INJ, ONCE, Dosing Weight 79.091, kg, Priority : STAT, Start date: 11/13/15 21:26:00, Stop date: 11/13/15 21:26:00 Notes: (Same as: Ashvin) MEDICATION WASTE Product Size: 4 mgProduct Was macarena: ___ mg Start Date: 11/13/15 Stop Date: 11/13/15 Status: Completed Saline Flush 0.9% 10 mL, Route: IVP, Drug Form: INJ, Dosing Weight 79.091, kg, PRN, PRN Line Flush , Start date: 11/13/15 16:45:00, Duration: 30 day, Stop date: 12/13/15 16:44:00 Notes: (Same as: BD Posiflush) Start Date: 11/13/15 Stop Date: 11/16/15 Status: Discontinued Sodium Chloride 0.9% (Bolus) IV 1,000 mL, 1,000 ml/hr, Infuse Over: 1 hr, Route: IV, 1,000, Drug form: INJ, ONCE , Priority: STAT, Dosing Weight 79.091 kg, Start date: 11/13/15 21:26:00, Durati on: 1 doses or times, Stop date: 11/13/15 21:26:00 Start Date: 11/13/15 Stop Date: 11/13/15 Status: Completed Results ELECTROLYTES 1 2 3 Most recent to oldest [Reference Range]: 140 mEq/L (11/14/15 9:29 AM) 140 mEq/L (11/13/15 5:12 PM) Sodium Lvl [135-145 mEq/L] 3.8 mEq/L (11/14/15 9:29 AM) 3.8 mEq/L (11/13/15 5:12 PM) Potassium Lvl [3.5-5.1 mEq/L] 105 mEq/L (11/14/15 9:29 AM) 105 mEq/L (11/13/15 5:12 PM) Chloride Lvl [95-109 mEq/L] 27 mEq/L (11/14/15 9:29 AM) 28 mEq/L (11/13/15 5:12 PM) CO2 [24-32 mEq/L] 11.8 mEq/L (11/14/15 9:29 AM) 10.8 mEq/L (11/13/15 5:12 PM) AGAP [10.0-20.0 mEq/L] CHEM PANEL 1 2 3 Most recent to oldest [Reference Range]: 0.86 mg/dL (11/14/15 9:29 AM) 0.95 mg/dL (11/13/15 5:12 PM) Creatinine Lvl [0.50-1.40 mg/dL] 67 mL/min/1.73m2 1 *NA* (11/14/15 9:29 AM) 60 mL/min/1.73m2 2 *NA* (11/13/15 5:12 PM) eGFR 22 mg/dL (11/14/15 9:29 AM) 26 mg/dL *HI* (11/13/15 5:12 PM) BUN [7-22 mg/dL] 27 *HI* (11/13/15 5:12 PM) B/C Ratio [6-25] 90 mg/dL (11/14/15 9:29 AM) 121 mg/dL *HI* (11/13/15 5:12 PM) Glucose Lvl [70-99 mg/dL] 7.9 g/dL (11/13/15 5:12 PM) Total Protein [6.4-8.4 g/dL] 3.6 g/dL (11/13/15 5:12 PM) Albumin Lvl [3.5-5.0 g/dL] 4.3 g/dL *HI* (11/13/15 5:12 PM) Globulin [2.0-4.0 g/dL] 0.8 (11/13/15 5:12 PM) A/G Ratio [0.7-1.6] 8.5 mg/dL (11/14/15 9:29 AM) 8.5 mg/dL (11/13/15 5:12 PM) Calcium Lvl [8.5-10.5 mg/dL] 25 unit/L (11/13/15 5:12 PM) ALT [0-65 unit/L] 23 unit/L (11/13/15 5:12 PM) AST [0-37 unit/L] 107 unit/L (11/13/15 5:12 PM) Alk Phos [39-136 unit/L] 0.6 mg/dL (11/13/15 5:12 PM) Bili Total [0.2-1.3 mg/dL] 71 unit/L (11/14/15 9:29 AM) 174 unit/L *HI* (11/13/15 5:12 PM) Amylase Lvl [25-115 unit/L] 75 unit/L (11/14/15 9:29 AM) 110 unit/L (11/13/15 5:12 PM) 109 unit/L (11/13/15 5:12 PM) Lipase Lvl [73-393 unit/L] 1Result Comment: The eGFR is calculated using [...] be mul tiplied by the estimated BMI. CARDIAC ENZYMES 1 2 3 Most recent to oldest [Reference Range]: 167 unit/L (11/13/15 5:12 PM) Total CK [12-191 unit/L] 3.5 ng/mL (11/13/15 5:12 PM) CK MB [0.5-3.6 ng/mL] 2.1 (11/13/15 5:12 PM) CK MB Index [0.0-2.5] <0.02 ng/mL (11/13/15 5:12 PM) Troponin-I [0.00-0.40 ng/mL] URINE AND STOOL 1 2 3 Most recent to oldest [Reference Range]: Clear (11/14/15 5:34 PM) Slight *ABN* (11/13/15 9:59 PM) UA Turbidity [Clear] Yellow *NA* (11/14/15 5:34 PM) Yellow *NA* (11/13/15 9:59 PM) UA Color [Yellow] 5.0 (11/14/15 5:34 PM) 5.0 (11/13/15 9:59 PM) UA pH [5.0-8.0] 1.042 *HI* (11/14/15 5:34 PM) 1.028 (11/13/15 9:59 PM) UA Spec Grav [<=1.030] Negative mg/dL *NA* (11/14/15 5:34 PM) Negative mg/dL *NA* (11/13/15 9:59 PM) UA Glucose [Negative mg/dL] Negative (11/14/15 5:34 PM) Small *ABN* (11/13/15 9:59 PM) UA Blood [Negative] Negative mg/dL *NA* (11/14/15 5:34 PM) Negative mg/dL *NA* (11/13/15 9:59 PM) UA Ketones [Negative mg/dL] Negative mg/dL (11/14/15 5:34 PM) 30 mg/dL *ABN* (11/13/15 9:59 PM) UA Protein [Negative mg/dL] <=1.0 mg/dL *NA* (11/14/15 5:34 PM) <=1.0 mg/dL *NA* (11/13/15 9:59 PM) UA Urobilinogen [0.1-1.0 mg/dL] Negative *NA* (11/14/15 5:34 PM) Negative *NA* (11/13/15 9:59 PM) UA Bili [Negative] Negative (11/14/15 5:34 PM) Negative (11/13/15 9:59 PM) UA Leuk Est [Negative] Negative (11/14/15 5:34 PM) Negative (11/13/15 9:59 PM) UA Nitrite [Negative] 1 /HPF (11/14/15 5:34 PM) 1 /HPF (11/13/15 9:59 PM) UA WBC [0-5 /HPF] 1 /HPF (11/14/15 5:34 PM) 9 /HPF *HI* (11/13/15 9:59 PM) UA RBC [0-2 /HPF] None Seen *NA* (11/14/15 5:34 PM) UA Sq Epi Occasional /LPF *NA* (11/13/15 9:59 PM) UA Sq Epi [Few /LPF] Few /LPF *NA* (11/13/15 9:59 PM) UA Mucus [None Seen /LPF] HEMATOLOGY 1 2 3 Most recent to oldest [Reference Range]: 5.1 K/CMM (11/15/15 5:46 AM) 4.6 K/CMM (11/14/15 9:29 AM) 8.5 K/CMM (11/13/15 5:12 PM) WBC [3.7-10.4 K/CMM] 3.76 M/CMM *LOW* (11/15/15 5:46 AM) 3.78 M/CMM *LOW* (11/14/15 9:29 AM) 4.62 M/CMM (11/13/15 5:12 PM) RBC [4.20-5.40 M/CMM] 11.5 g/dL *LOW* (11/15/15 5:46 AM) 11.5 g/dL *LOW* (11/14/15 9:29 AM) 14.1 g/dL (11/13/15 5:12 PM) Hgb [12.0-16.0 g/dL] 35.5 % *LOW* (11/15/15 5:46 AM) 35.8 % *LOW* (11/14/15:29 AM) 43.5 % (11/13/15 5:12 PM) Hct [36.0-48.0 %] 94.5 fL (11/15/15 5:46 AM) 94.6 fL (11/14/15 9:29 AM) 94.0 fL (11/13/15 5:12 PM) MCV [80.0-98.0 fL] 30.6 pg (11/15/15 5:46 AM) 30.4 pg (11/14/15:29 AM) 30.4 pg (11/13/15 5:12 PM) MCH [27.0-31.0 pg] 32.4 g/dL (11/15/15 5:46 AM) 32.2 g/dL (11/14/15:29 AM) 32.4 g/dL (11/13/15 5:12 PM) MCHC [32.0-36.0 g/dL] 14.9 % *HI* (11/15/15 5:46 AM) 15.1 % *HI* (11/14/15 9:29 AM) 14.8 % *HI* (11/13/15 5:12 PM) RDW [11.5-14.5 %] 183 K/CMM (11/15/15 5:46 AM) 192 K/CMM (11/14/15 9:29 AM) 222 K/CMM (11/13/15 5:12 PM) Platelet [133-450 K/CMM] 7.2 fL *LOW* (11/15/15 5:46 AM) 7.5 fL (11/14/15 9:29 AM) 7.2 fL *LOW* (11/13/15 5:12 PM) MPV [7.4-10.4 fL] 75.3 % *HI* (11/15/15 5:46 AM) 72.7 % (11/14/15 9:29 AM) 89.9 % *HI* (11/13/15 5:12 PM) Segs [45.0-75.0 %] 15.5 % *LOW* (11/15/15 5:46 AM) 18.4 % *LOW* (11/14/15 9:29 AM) 4.0 % *LOW* (11/13/15 5:12 PM) Lymphocytes [20.0-40.0 %] 7.0 % (11/15/15 5:46 AM) 7.6 % (11/14/15 9:29 AM) 5.8 % (11/13/15 5:12 PM) Monocytes [2.0-12.0 %] 2.0 % (11/15/15 5:46 AM) 1.2 % (11/14/15 9:29 AM) 0.2 % (11/13/15 5:12 PM) Eosinophils [0.0-4.0 %] 0.2 % (11/15/15 5:46 AM) 0.1 % (11/14/15 9:29 AM) 0.1 % (11/13/15 5:12 PM) Basophils [0.0-1.0 %] 3.8 K/CMM (11/15/15 5:46 AM) 3.4 K/CMM (11/14/15 9:29 AM) 7.7 K/CMM (11/13/15 5:12 PM) Segs-Bands # [1.5-8.1 K/CMM] 0.8 K/CMM *LOW* (11/15/15 5:46 AM) 0.8 K/CMM *LOW* (11/14/15 9:29 AM) 0.3 K/CMM *LOW* (11/13/15 5:12 PM) Lymphocytes # [1.0-5.5 K/CMM] 0.4 K/CMM (11/15/15 5:46 AM) 0.3 K/CMM (11/14/15 9:29 AM) 0.5 K/CMM (11/13/15 5:12 PM) Monocytes # [0.0-0.8 K/CMM] 0.1 K/CMM (11/15/15 5:46 AM) 0.1 K/CMM (11/14/15 9:29 AM) Eosinophils # [0.0-0.5 K/CMM] Immunizations Vaccine Date Refusal Reason influenza virus vaccine, inactivated 05/30/09 pneumococcal 23-valent vaccine 05/30/09 Procedures No data available for this section Social History Social History Type Response Smoking Status Never smoker; Type: Cigarettes; Exposure to Tobacco Smoke None; Cigarette Smoking Last 365 Days No; Reg Smoking Cessation Counseling No Assessment and Plan Extracted from: Title: Surgery Staff - DISCHARGE Author: Santiago Holt MD Date: 11/16/15 NOTE Surgery Staff Progress Note Santiago Holt M.D. cc: s/p fall from standing SUBJECTIVE: Doing well. CXR last night showed stable small basilar consolidation with small left pleural effusion. No pneumothorax. OBJECTIVE: Physical Exam: gen - NAD, on room air with no SOB pulm - equal chest rise B, pulling over 1000 on incentive spirometer abd - soft and non tender VitalsTmp(F)[id number] 11/15 12:[id number]/970123--- 11/15 07:4997.733683/170904--- 11/15 06:40 1292 21% 11/15 04:0098.501330/118618--- 11/15 00:0098.009589/185881--- 24 Hr Tmax: 99.0F (37.22c) at 11/15 12:48Vital Signs are the last 5 in the past 48 hours. I&ORecordInOutBal 2924hr Tot 480 0 480 2824hr Tot 920 0 920 Labs (Last four charted values) WBC 5.1(NOV 14)4.6(NOV 13)8.5(NOV 12) Hgb L 11.5(NOV 14)L 11.5(NOV 13)14.1(NOV 12) Hct L 35.5(NOV 14)L 35.8(NOV 13)43.5(NOV 12) Plt 183(NOV 14)192(NOV 13)222(NOV 12) Na 140(NOV 13)140(NOV 12) K 3.8(NOV 13)3.8(NOV 12) CO2 27(NOV 13)28(NOV 12) Cl 105(NOV 13)105(NOV 12) Cr 0.86(NOV 13)0.95(NOV 12) BUN 22(NOV 13)H 26(NOV 12) Glucose Random 90(NOV 13)H 121(NOV 12) Ca 8.5(NOV 13)8.5(NOV 12) Troponin <0.02(NOV 12) CK MB 3.5(NOV 12) Total CK 167(NOV 12) ASSESSMENT: 70 year old woman s/p fall from standing on 11.12.15 presents with LEFT lateral 5/6/7 rib fracutes, small left pneumothorax (resolved), elevated amylase (normal on repeat labs), and blood in her urine on initial clean catch but negative on repeat straight cath. Distal LEFT clavicle fracture noted on plain films. Dr. Desir has seen patient and she is OK for discharge from ortho standpoint. PLAN: 1. DISCHARGE home. 2. Heart healthy diet. 3. RTC with me 1-2 weeks. Follow up with Dr. Desir with ortho as instructed by him re. LEFT clavicle fracture. Wear the arm sling in the interim. 4. Resume home meds. 5. See med rec for new scripts. Take as prescribed. 6. Activity: wear LEFT arm sling, no strenuous activity or heavy lifting more than 10 pounds. OK to shower/bathe. Encourage ambulation and use of incentive spirometry frequently throughout the day to keep lungs healthy. 7. Call Santiago Holt MD at [phone] for: fever of 101.5 degrees F or higher, any big increase in abdominal pain, any shortness of breath, any persistent nausea/emesis, or any questions or concerns. Discussed with patient and her . All questions answered. Extracted from: Title: Surgery Staff Author: Santiago Holt MD Date: 11/14/15 HISTORY AND PHYSICAL SANTIAGO HOLT MD CC: s/p fall from standing HPI: 70 year old woman s/p fall from standing on 11.12.15. She tripped and fell backwards landing on her LEFT flank and back . She initially went to an urgent care center that day where she was diagnosed with rib fractures and discharged home. She experienced nausea and emesis at home so returned to the ER for further workup. She was found to have multiple LEFT rib fractures and small pneumothorax. She also had a mild elevation in her amylase and blood in her urine on clean catch. I was consulted for trauma admission. PMH: 1. htn 2. hypothyroidism PSH: 1. knee replacement x 2 2. bladder suspension 3. LEFT wrist fracture treated with cast only FAM HISTORY: non contributory SOCIAL HISTORY: no ETOH no tobacco no drugs MEDICATIONS: see chart ALLERGIES: 1. Bextra 2. Cipro ROS: negative x 14 systems (constitutional, eyes, ENT, CV, respiratory, GI, , MSK, neuro, psych, endocrine, heme/lymph, allergic, skin/breast) EXCEPT per HPI EXAM: VitalsTmp(F)[id number] 11/13 04:19 1698 30% 11/13 04:0097.485518/71-------- 11/13 03:12-------119/50--100 50% 11/13 00:15----09585/60--100 50% 11/13 00:13 97100 50% 24 Hr Tmax: 98.6F (37.00c) at 11/12 16:28Vital Signs are the last 5 in the past 48 hours. I&ORecordInOutBal 2624hr Tot 1102 0 1102 2524hr Tot 0 0 0 GENERAL/CONSTITUTIONAL - NAD, oxygen intact HEENT - NCAT, PERRA, EOMI, nasopharynx clear, throat clear NECK - midline PULMONARY - equal chest rise B CARDIOVASCULAR - RRR GI - soft, nontender, nondistended, no rebound, no guarding, no organomegaly, no palpable ventral hernias MSK - GUERRERO with appropriate muscle tone, some pain LEFT shoulder but good range of motion, LEFT chest wall tender to touch where known rib fractures are, LEFT flank/chargeback specialist to deep palpation PSYCH - appropriate mood/affect SKIN/LYMPHATICS - normal skin tone Labs (Last four charted values) WBC 8.5(NOV 12) Hgb 14.1(NOV 12) Hct 43.5(NOV 12) Plt 222(NOV 12) Na 140(NOV 12) K 3.8(NOV 12) CO2 28(NOV 12) Cl 105(NOV 12) Cr 0.95(NOV 12) BUN H 26(NOV 12) Glucose Random H 121(NOV 12) Ca 8.5(NOV 12) Troponin <0.02(NOV 12) CK MB 3.5(NOV 12) Total CK 167(NOV 12) amylase 174 small blood in urine (RBC per HPF), negative nitrite and LE CXR: IMPRESSION: Mild left chest wall subcutaneous emphysema is present. No definite acute displaced rib fracture detected. Subjacent left pleural thickening and lower lobe and right lower lobe patchy infiltrates are present. Small left upper lobe pneumothorax is present. CT C/A/P: TECHNIQUE: Sequential trans-axial images were obtained thru the chest, abdomen and pelvis after administration of iodinated contrast. Coronal and sagittal reconstructions were obtained. 100 cc of nonionic contrast material was used for the exam. Dose: DLP=mGy-cm CHEST FINDINGS: Stable mild cardiomegaly. No pericardial effusion. No mediastinum or hilar mass or adenopathy. Small left pneumothorax is present. Patchy bibasilar atelectasis or infiltrates are present. Trace left pleural effusion is present. Mild left chest wall swelling and subcutaneous emphysema. Acute left lateral 5th 6th and 7th rib fractures are present. Small to moderate anterior lower left pneumothorax is present. ABDOMEN AND PELVIS FINDINGS: Distended gallbladder. Multiple large varying size hepatic cysts are present. The spleen and atrophic pancreas are grossly unremarkable in appearance. Tiny bilateral low-density lesions are present likely cysts. Abundance of stool within the colon. Moderate diffuse colonic diverticulosis. The bladder is nondistended. Nonvisualization of the uterus presumably post hysterectomy. Mild lumbar spondylosis and facet arthrosis. IMPRESSION: 1. Mild left chest wall swelling and subcutaneous emphysema. Acute left lateral 5th 6th and 7th rib fractures are present. Small to moderate anterior lower left pneumothorax is present. This has been reported on chest radiograph. 2. No definite solid organ injury detected. 3. Multiple large varying size hepatic cysts are present. 4. Tiny bilateral low-density lesions are present likely cysts. 5. Postoperative hysterectomy. 6. Constipation. Moderate diffuse colonic diverticulosis. ASSESSMENT: 70 year old woman s/p fall from standing on 16 presents with LEFT lateral 5/6/7 rib fracutes, small left pneumothorax, elevated amylase (normal on repeat labs), and blood in her urine. PLAN: 1. Try clear liquid diet. 2. Repeat UA with straight cath to reassess blood in urine. 3. Plain films LEFT shoulder to r/o injury not seen on CT. 4. Encouraged OOB, incentive spirometer, ambulation. 5. Repeat CXR in AM to reassess ptx. Discussed with patient. All questions answered.
--- OUTSIDE RECORDS SUMMARY | 2018-06-04 14:15 | XMS REPORT | Continuity of Care Document ---
Author Author [facility] Interface Address Unknown Phone Unavailable Problems Problem Status Onset Date Classification Date Reported Comments Source S/P HIP FX Active 01/08/2018 [facility] CLOSED DISPLACED FRACTURE OF LEFT FEMORA Active 12/31/2017 [facility] FALL Active 12/31/2017 [facility] LEFT HIP FX Active 12/31/2017 [facility] J32.9 Active 11/21/2016 [facility] PNEUMOTHORAX Active 11/13/2015 [facility] VOMITING Active 11/13/2015 [facility] J98.6 DISORDERS OF DIAPHRAGM Active 06/15/2015 [facility] Stiffness of left hip, not elsewhere classified 02/16/2018 [facility] Pain in left hip 02/16/2018 [facility] Weakness 02/16/2018 [facility] Other abnormalities of gait and mobility 02/16/2018 [facility] Renal insufficiency Active Problem 02/16/2018 [facility] Femoral neck fracture Active Problem 02/16/2018 [facility] Hypertension Active Problem 02/16/2018 [facility] Hypothyroidism Active Problem 02/16/2018 [facility] 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 Problem 02/16/2018 [facility] Vitamin D deficiency Active Problem 02/16/2018 [facility] 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 [facility] Displaced intertrochanteric fracture of unspecified femur, initial encounter for closed fracture 01/13/2018 [facility] DISORDERS OF DIAPHRAGM Active [facility] PNEUMOTHORAX, UNSPECIFIED Active [facility] FRACTURE OF UNSP PART OF NECK OF LEFT FE Active [facility] CHRONIC SINUSITIS, UNSPECIFIED Active [facility] DISPLACED INTERTROCHANTERIC FRACTURE OF Active [facility] DISPLACED MIDCERVICAL FRACTURE OF LEFT F Active [facility] STIFFNESS OF LEFT HIP, NOT ELSEWHERE CLA Active [facility] PAIN IN LEFT HIP Active [facility] WEAKNESS Active [facility] OTHER ABNORMALITIES OF GAIT AND MOBILITY Active [facility] Medications Medication Details Route Status Patient Instructions Ordering Provider Order Date Source Physical Therapy See Instructions, MISC, ONCALL, Evaluate and Treat 2-3 times per week for 4-6 weeks, # 1 ea, 0 Refill(s) Active 01/10/2018 [facility] Vitamin D3 2000 intl units oral capsule 2,000 IntlUnit=1 cap, PO, Daily, # 30 cap, 0 Refill(s) Active 01/10/2018 [facility] acetaminophen 500 mg oral tablet 1,000 mg=2 tab, PO, TID, 0 Refill(s) Active 01/10/2018 [facility] tramadol hydrochloride 50 MG Oral Tablet 50 mg=1 tab, PO, Q4H, PRN Pain Score 7-10, X 5 day, # 20 tab, 0 Refill(s) Active 01/10/2018 [facility] metoprolol 25 mg oral tablet, extended release 25 mg=1 tab, PO, Daily, # 30 tab, 0 Refill(s) Active 01/10/2018 [facility] losartan 100 mg oral tablet 100 mg=1 tab, PO, Daily, # 30 tab, 0 Refill(s) Active 01/10/2018 [facility] levothyroxine 100 mcg (0.1 mg) oral tablet 100 microgram=1 tab, PO, Q630AM, # 30 tab, 0 Refill(s) Active 01/10/2018 [facility] Aspirin 325 MG Enteric Coated Tablet 325 mg=1 tab, PO, Daily, # 7 tab, 0 Refill(s) Active 01/10/2018 [facility] citalopram 20 mg oral tablet 20 mg=1 tab, PO, Daily, # 30 tab, 0 Refill(s) Active 01/10/2018 [facility] atorvastatin 10 mg oral tablet 10 mg=1 tab, PO, Daily, # 30 tab, 0 Refill(s) Active 01/10/2018 [facility] Vitamin D2 50,000 IntlUnit, 1 cap, Route: PO, Drug form: CAP, Q7D, Dosing Weight 81.818, kg, Start date: 01/09/18 9:00:00 CDT, Duration: 30 day, Stop date: 02/06/18 9:00:00 CDTNotes: (Same as: Vitamin D) "Do Not Crush" No Longer Active 01/09/2018 [facility] Vitamin D3 2000 intl units oral tablet 2,000 IntlUnit, 2 tab, Route: PO, Drug form: TAB, Daily, Dosing Weight 84.182, kg, Start date: 01/06/18 9:00:00 CDT, Duration: 30 day, Stop date: 02/04/18 9:00:00 CDTNotes: Same as : Vitamin D3 No Longer Active 01/06/2018 [facility] atorvastatin 10 mg, 1 tab, Route: PO, Drug form: TAB, Daily, Dosing Weight 84.182, kg, Start date: 01/05/18 9:00:00 CDT, Duration: 30 day, Stop date: 02/03/18 9:00:00 CDTNotes: (Same As: Lipitor) No Longer Active 01/05/2018 [facility] metoprolol extended release 25 mg, 1 tab, Route: PO, Drug form: ERTAB, Daily, Start date: 01/05/18 9:00:00 CDT, Duration: 30 day, Stop date: 02/03/18 9:00:00 CDTNotes: (Same as: Toprol XL) Do Not Crush No Longer Active 01/05/2018 [facility] Losartan 100 mg, 2 tab, Route: PO, Drug form: TAB, Daily, Dosing Weight 84.182, kg, Start date: 01/05/18 9:00:00 CDT, Duration: 30 day, Stop date: 02/03/18 9:00:00 CDTNotes: (Same as: Cozaar) No Longer Active 01/05/2018 [facility] Citalopram 20 mg, 2 tab, Route: PO, Drug form: TAB, Daily, Dosing Weight 84.182, kg, Start date: 01/05/18 9:00:00 CDT, Duration: 30 day, Stop date: 02/03/18 9:00:00 CDT No Longer Active 01/05/2018 [facility] remove patch 1 patch, Route: TOP, Bedtime, Drug form: ERFILM, Start date: 01/04/18 21:00:00 CDT, Duration: 30 day, Stop date: 02/02/18 21:00:00 CDTNotes: Remove patch 12 hours after application each day. No Longer Active 01/05/2018 [facility] Lovenox 40 mg, 0.4 mL, Route: SUB-Q, Drug form: INJ, [id number], Dosing Weight 81.818, kg, Start date: 01/04/18 12:00:00 CDT, Duration: 14 day, Stop date: 01/17/18 12:00:00 CDTNotes: (Same as: Lovenox) No Longer Active 01/04/2018 [facility] lidocaine topical patch (5% film) 1 patch, Route: TOP, Daily, Drug form: FILM, Start date: 01/04/18 9:00:00 CDT, Duration: 30 day, Stop date: 02/02/18 9:00:00 CDTNotes: Apply only once for up to 12 hours in a 24-hour period (12 hours on and 12 hours off). (Same as: Lidoderm) "Remove old patch before application of new patch" No Longer Active 01/04/2018 [facility] Senokot S 1 tab, Route: PO, Drug Form: TAB, Dosing Weight 81.818, kg, BID, Start date: 01/04/18 9:00:00 CDT, Duration: 30 day, Stop date: 02/02/18 17:00:00 CDTNotes: (Same as Senokot-S) Equiv. to Skylar-Colace. No Longer Active 01/04/2018 [facility] Os-Jose 500 500 mg, 1 tab, Route: PO, Drug form: TAB, BID, Dosing Weight 81.818, kg, Start date: 01/04/18 9:00:00 CDT, Duration: 30 day, Stop date: 02/02/18 17:00:00 CDTNotes: 500mg elemental [id number] calcium carbonate. Contains 500mg elemental calcium. (Same As: OsCal 500) No Longer Active 01/04/2018 [facility] Levothroid 100 microgram, 1 tab, Route: PO, Drug form: TAB, Q630AM, Dosing Weight 81.818, kg, Start date: 01/04/18 6:30:00 CDT, Duration: 30 day, Stop date: 02/02/18 6:30:00 CDTNotes: Take 1 hour before or 2 hours after meal; Enteral feeds may interefere with the absorption of this medication. (Same as:Levothroid, Synthroid) No Longer Active 01/04/2018 [facility] Tylenol 1,000 mg, 2 tab, Route: PO, Drug form: TAB, TID, Dosing Weight 81.818, kg, Start date: 01/04/18 6:00:00 CDT, Duration: 30 day, Stop date: 02/02/18 18:00:00 CDTNotes: Max acetaminophen 4000 mg/day (4 gm/day). (Same as: Tylenol Extra Strength) No Longer Active 01/04/2018 [facility] Streptococcus pneumoniae serotype 1 capsular antigen diphtheria [id number] protein conjugate vaccine / Streptococcus pneumoniae serotype 14 capsular antigen diphtheria [id number] protein conjugate vaccine / Streptococcus pneumoniae serotype 18C capsular antigen d 0.5 mL, Route: IM, Drug Form: INJ, ONCALL, Start date: 01/03/18 22:33:09 CDT, Stop date: 02/02/18 22:28:09 CDTNotes: Shake well prior to use (Same as: Prevnar 13) No Longer Active 01/04/2018 [facility] tramadol 50 mg oral tablet 50 mg, 1 tab, Route: PO, Drug form: TAB, Q4H, Dosing Weight 81.818, kg, PRN Pain Score 7-10, Start date: 01/03/18 22:14:00 CDT, Duration: 30 day, Stop date: 02/02/18 22:13:00 CDTNotes: Not to exceed 400mg/day. (Same As: Ultram) No Longer Active 01/04/2018 [facility] Tylenol 650 mg, 2 tab, Route: PO, Drug form: TAB, Q4H, Dosing Weight 81.818, kg, PRN Pain 1-3/Temp > 100.4 F, Start date: 01/03/18 21:28:00 CDT, Duration: 30 day, Stop date: 02/02/18 21:27:00 CDTNotes: Do not exceed 4 gm/day. (Same as: Tylenol) No Longer Active 01/04/2018 [facility] Trazodone 50 mg, 1 tab, Route: PO, Drug form: TAB, Bedtime, Dosing Weight 81.818, kg, PRN Insomnia, Start date: 01/03/18 19:51:00 CDT, Duration: 30 day, Stop date: 02/02/18 19:50:00 CDTNotes: (Same As: Desyrel) No Longer Active 01/04/2018 [facility] Calcium Carbonate 500 MG Chewable Tablet 500 mg, PO, BID, 0 Refill(s) On Hold 01/03/2018 [facility] Docusate Sodium 50 MG / sennosides, NURSING HOME 8.6 MG Oral Tablet 1 tab, PO, BID, 0 Refill(s) On Hold 01/03/2018 [facility] enoxaparin 40 mg/0.4 mL subcutaneous solution 40 mg=0.4 mL, SUB-Q, [id number], 0 Refill(s) On Hold 01/03/2018 [facility] Ergocalciferol 28763 UNT Oral Capsule 50,000 IntlUnit=1 cap, PO, Q7D, 0 Refill(s) On Hold 01/03/2018 [facility] tramadol hydrochloride 50 MG Oral Tablet 50 mg=1 tab, PO, Q4H, PRN Pain Score 7-10, 0 Refill(s) On Hold 01/03/2018 [facility] Docusate Sodium 50 MG / sennosides, NURSING HOME 8.6 MG Oral Tablet 1 tab, Route: PO, Drug Form: TAB, Dosing Weight 81.818, kg, BID, Start date: 01/03/18 9:00:00 CDT, Duration: 30 day, Stop date: 02/01/18 17:00:00 CDTNotes: (Same as Jose D-S) Equiv. to Skylar-Colace. Inactive 01/03/2018 [facility] Dulcolax Laxative 10 mg, 1 supp, Route: OK, Drug form: SUPP, ONCE, Dosing Weight 81.818, kg, Start date: 01/03/18 8:28:00 CDT, Stop date: 01/03/18 8:28:00 CDTNotes: (Same As: Dulcolax, Bisco-Lax) Inactive 01/03/2018 [facility] remove patch 1 patch, Route: TOP, Bedtime, Drug form: ERFILM, Start date: 01/03/18 0:00:00 CDT, Duration: 30 day, Stop date: 02/01/18 21:00:00 CDTNotes: Remove patch 12 hours after application each day. Inactive 01/03/2018 [facility] Tylenol 1,000 mg, 2 tab, Route: PO, Drug form: TAB, TID, Dosing Weight 81.818, kg, Start date: 01/02/18 18:00:00 CDT, Duration: 30 day, Stop date: 02/01/18 12:00:00 CDTNotes: Max acetaminophen 4000 mg/day (4 gm/day). (Same as: Tylenol Extra Strength) No Longer Active 01/02/2018 [facility] Lidocaine 0.05 MG/MG Transdermal Patch 1 patch, Route: TOP, Daily, Drug form: FILM, Start date: 01/02/18 14:00:00 CDT, Duration: 30 day, Stop date: 02/01/18 9:00:00 CDTNotes: Apply only once for up to 12 hours in a 24-hour period (12 hours on and 12 hours off). (Same as: Lidoderm) "Remove old patch before application of new patch" No Longer Active 01/02/2018 [facility] tramadol hydrochloride 50 MG Oral Tablet 50 mg, 1 tab, Route: PO, Drug form: TAB, Q4H, Dosing Weight 81.818, kg, PRN Pain Score 7-10, Start date: 01/02/18 12:41:00 CDT, Duration: 30 day, Stop date: 02/01/18 12:40:00 CDTNotes: Not to exceed 400mg/day. (Same As: Ultram) No Longer Active 01/02/2018 [facility] Tramadol 25 mg, 0.5 tab, Route: PO, Drug form: TAB, Q4H, Dosing Weight 81.818, kg, PRN Pain Score 4-6, Start date: 01/02/18 12:41:00 CDT, Duration: 30 day, Stop date: 02/01/18 12:40:00 CDTNotes: Not to exceed 400mg/day. (Same As: Ultram) No Longer Active 01/02/2018 [facility] Lovenox 40 mg, 0.4 mL, Route: SUB-Q, Drug form: INJ, [id number], Dosing Weight 81.818, kg, Start date: 01/02/18 12:00:00 CDT, Duration: 14 day, Stop date: 01/15/18 12:00:00 CDTNotes: (Same as: Lovenox) No Longer Active 01/02/2018 [facility] Ergocalciferol 50,000 IntlUnit, 1 cap, Route: PO, Drug form: CAP, Q7D, Dosing Weight 81.818, kg, Start date: 01/02/18 9:00:00 CDT, Duration: 30 day, Stop date: 01/30/18 9:00:00 CDTNotes: (Same as: Vitamin D) "Do Not Crush" No Longer Active 01/02/2018 [facility] Ancef + sterile water 20 mL 2 gm, Route: IVP, [id number], Dosing Weight 81.818, kg, Start date: 01/01/18 22:00:00 CDT, Duration: 1 day, Stop date: 01/02/18 14:00:00 CDT, ABX Indication: Surgical ProphylaxisNotes: (Same As: Ancef, Kefzol) MEDICATION WASTE Product Size: 1000 mg Product Wasted: ___ mg No Longer Active 01/02/2018 [facility] Calcium Carbonate 500 mg, 1 tab, Route: PO, Drug form: TAB, BID, Dosing Weight 81.818, kg, Start date: 01/01/18 17:00:00 CDT, Duration: 30 day, Stop date: 01/31/18 9:00:00 CDTNotes: 500mg elemental [id number] calcium carbonate. Contains 500mg elemental calcium. (Same As: OsCal 500) No Longer Active 01/01/2018 [facility] Enoxaparin 30 mg, Route: SUB-Q, Drug form: INJ, [id number], Dosing Weight 81.818, kg, Start date: 01/01/18 15:00:00 CDT, Stop date: 01/31/18 3:00:00 CDT Inactive 01/01/2018 [facility] neostigmine (ANES) Route: IV, Drug form: INJ, ONCE, Stop date: 01/01/18 15:00:00 CDT Inactive 01/01/2018 [facility] glycopyrrolate (ANES) Route: IV, Drug form: INJ, ONCE, Stop date: 01/01/18 14:59:00 CDT Inactive 01/01/2018 [facility] esmolol (ANES) Route: IV, Drug form: INJ, ONCE, Stop date: 01/01/18 14:37:00 CDT Inactive 01/01/2018 [facility] ceFAZolin (ANES) Route: IV, Drug form: INJ, ONCE, Stop date: 01/01/18 14:32:00 CDT Inactive 01/01/2018 [facility] ondansetron (ANES) Route: IV, Drug form: INJ, ONCE, Stop date: 01/01/18 14:32:00 CDT Inactive 01/01/2018 [facility] acetaminophen (ANES) Route: IV, Drug form: INJ, ONCE, Stop date: 01/01/18 14:32:00 CDT Inactive 01/01/2018 [facility] vancomycin (ANES) Route: IV, Drug form: INJ, ONCE, Stop date: 01/01/18 14:32:00 CDT Inactive 01/01/2018 [facility] tranexamic acid (ANES) Route: IV, Drug form: INJ, ONCE, Stop date: 01/01/18 14:32:00 CDT Inactive 01/01/2018 [facility] dexamethasone (ANES) Route: IV, Drug form: INJ, ONCE, Stop date: 01/01/18 14:32:00 CDT Inactive 01/01/2018 [facility] fentaNYL (ANES) Route: IV, Drug form: INJ, ONCE, Stop date: 01/01/18 14:27:00 CDT Inactive 01/01/2018 [facility] lidocaine (ANES) Route: IV, Drug form: INJ, ONCE, Stop date: 01/01/18 14:27:00 CDT Inactive 01/01/2018 [facility] propofol (ANES) Route: IV, Drug form: INJ, ONCE, Stop date: 01/01/18 14:27:00 CDT Inactive 01/01/2018 [facility] rocuronium (ANES) Route: IV, Drug form: INJ, ONCE, Stop date: 01/01/18 14:27:00 CDT Inactive 01/01/2018 [facility] Lactated Ringers Injection IV (ANES) 1000 mL Route: IV, Total Volume: 1,000, Start date: 01/01/18 13:27:00 CDT, Stop date: 01/01/18 14:27:00 CDT Inactive 01/01/2018 [facility] Streptococcus pneumoniae serotype 1 capsular antigen diphtheria [id number] protein conjugate vaccine / Streptococcus pneumoniae serotype 14 capsular antigen diphtheria [id number] protein conjugate vaccine / Streptococcus pneumoniae serotype 18C capsular antigen d 0.5 mL, Route: IM, Drug Form: INJ, Daily, Start date: 01/01/18 9:00:00 CDT, Duration: 1 doses or times, Stop date: 01/01/18 9:00:00 CDTNotes: Shake well prior to use (Same as: Prevnar 13) Inactive 01/01/2018 [facility] Synthroid 100 microgram, 1 tab, Route: PO, Drug form: TAB, Q630AM, Dosing Weight 81.818, kg, Start date: 01/01/18 6:30:00 CDT, Duration: 30 day, Stop date: 01/30/18 6:30:00 CDTNotes: Take 1 hour before or 2 hours after meal; Enteral feeds may interefere with the absorption of this medication. (Same as:Levothroid, Synthroid) No Longer Active 01/01/2018 [facility] ropivacaine 100 mL, Route: InFILtration(local), Drug Form: INJ, Dosing Weight 81.818, kg, ONCALL, Start date: 01/01/18 6:00:00 CDT, Duration: 30 day, Stop date: 01/31/18 5:59:00 CDTNotes: NOT FOR IV use Ropivacaine 5 mg/mL (49.25 mL) Epinephrine 1 mg/mL (0.5 mL) Clonidine 0.1 mg/mL (0.8 mL) Ketorolac 30 mg/mL (1 mL) Normal Saline 48.45 mL No Longer Active 01/01/2018 [facility] pantoprazole 40 mg, PO, BID, # 30 tab, 0 Refill(s) On Hold 01/01/2018 [facility] atorvastatin 10 mg, PO, Daily, 0 Refill(s) On Hold 01/01/2018 [facility] metoprolol extended release 25 mg, PO, Daily, 0 Refill(s) On Hold 01/01/2018 [facility] Dilaudid 1 mg, 1 mL, Route: IVP, Drug form: SOLN, Q4H, Dosing Weight 81.818, kg, PRN Pain Score 7-10, Start date: 12/31/17 17:10:00 CDT, Duration: 30 day, Stop date: 01/30/18 17:09:00 CDTNotes: (Same as: Dila udid) No Longer Active 12/31/2017 [facility] Saline Flush 0.9% 10 ml, Route: IVP, Drug Form: INJ, Dosing Weight 81.818, kg, PRN, PRN Line Flush, Start date: 12/31/17 17:02:00 CDT, Duration: 30 day, Stop date: 01/30/18 17:01:00 CDTNotes: (Same as: BD Posiflush) No Longer Active 12/31/2017 [facility] Sodium Chloride 0.9% IV 1,000 mL 1,000 mL, Rate: 75 ml/hr, Infuse over: 13.3 hr, Route: IV, Dosing Weight 81.818 kg, Total Volume: 1,000, Start date: 12/31/17 17:02:00 CDT, Duration: 30 day, Stop date: 01/30/18 17:01:00 CDT, 1.99, m2 No Longer Active 12/31/2017 [facility] Ondansetron 4 mg, 2 mL, Route: IVP, Drug form: INJ, Q6H, Dosing Weight 81.818, kg, PRN Nausea & Vomiting, Start date: 12/31/17 17:02:00 CDT, Duration: 30 day, Stop date: 01/30/18 17:01:00 CDTNotes: (Same as: Zofran) MEDICATION WASTE Product Size: 4 mg Product Wasted: ___ mg No Longer Active 12/31/2017 [facility] Acetaminophen 650 mg, 2 tab, Route: PO, Drug form: TAB, Q4H, Dosing Weight 81.818, kg, PRN Pain 1-3/Temp > 100.4 F, Start date: 12/31/17 17:02:00 CDT, Duration: 30 day, Stop date: 01/30/18 17:01:00 CDTNotes: Do not exceed 4 gm/day. (Same as: Tylenol) No Longer Active 12/31/2017 [facility] Morphine 2 mg, Route: IVP, Q4H, Dosing Weight 81.818, kg, PRN Pain Score 7-10, Start date: 12/31/17 17:02:00 CDT, Duration: 30 day, Stop date: 01/30/18 17:01:00 CDT Inactive 12/31/2017 [facility] Acetaminophen 325 MG / Hydrocodone Bitartrate 5 MG Oral Tablet 1 tab, Route: PO, Drug Form: TAB, Dosing Weight 81.818, kg, Q4H, PRN Pain Score 4-6, Start date: 12/31/17 17:02:00 CDT, Duration: 30 day, Stop date: 01/30/18 17:01:00 CDTNotes: (Same as: [place] 325/5) Do not exceed 4gm/day of acetaminophen. No Longer Active 12/31/2017 [facility] Hydralazine 10 mg, 0.5 mL, Route: IVP, Drug form: INJ, Q6H, Dosing Weight 81.818, kg, PRN Elevated BP, Start date: 12/31/17 17:01:00 CDT, Duration: 30 day, Stop date: 01/30/18 17:00:00 CDT, systolic greater than 170 mm HgNotes: (Same as: Apresoline) Push over 5 minutes No Longer Active 12/31/2017 [facility] Fentanyl 50 microgram, Route: IVP, ONCE, Dosing Weight 81.818, kg, Priority: STAT, Start date: 12/31/17 14:05:00 CDT, Stop date: 12/31/17 14:05:00 CDT Inactive 12/31/2017 [facility] Zofran ODT 4 mg, Route: PO, Drug form: TABDIS, ONCE, Dosing Weight 81.818, kg, Priority: STAT, Start date: 12/31/17 13:57:00 CDT, Stop date: 12/31/17 13:57:00 CDT Inactive 12/31/2017 [facility] Dilaudid 1 mg, 1 mL, Route: IVP, Drug form: SOLN, ONCE, Dosing Weight 81.818, kg, Priority: STAT, Start date: 12/31/17 13:37:00 CDT, Stop date: 12/31/17 13:37:00 CDTNotes: (Same as: Dilaudid) Inactive 12/31/2017 [facility] Zofran 4 mg, 2 mL, Route: IVP, Drug form: INJ, ONCE, Dosing Weight 81.818, kg, Priority: STAT, Start date: 12/31/17 12:05:00 CDT, Stop date: 12/31/17 12:05:00 CDTNotes: (Same as: Ashvin) MEDICATION WASTE Product Size: 4 mg Product Wasted: ___ mg Inactive 12/31/2017 [facility] Morphine 4 mg, 1 mL, Route: IVP, Drug form: SOLN, ONCE, Dosing Weight 81.818, kg, Priority: STAT, Start date: 12/31/17 12:05:00 CDT, Stop date: 12/31/17 12:05:00 CDTNotes: (Same as:MORPhine Sulfate) Inactive 12/31/2017 [facility] NS (Bolus) IV 500 mL, 500 ml/hr, Infuse Over: 1 hr, Route: IV, 500, Drug form: INJ, ONCE, Priority: STAT, Dosing Weight 81.818 kg, Start date: 12/31/17 12:04:00 CDT, Stop date: 12/31/17 12:04:00 CDT Inactive 12/31/2017 [facility] Docusate Sodium 100 MG Oral Capsule [Colace] 100 mg=1 cap, PO, BID, PRN Constipation, # 20 cap, 0 Refill(s) Active 11/16/2015 [facility] Acetaminophen 325 MG / Hydrocodone Bitartrate 10 MG Oral Tablet 1 tab, PO, Q4H, PRN Pain Score 1-3, 0 Refill(s) Active 11/16/2015 [facility] Losartan 100 mg, 2 tab, Route: PO, Drug form: TAB, Daily, Dosing Weight 81.08, kg, Start date: 11/16/15 9:00:00, Duration: 30 day, Stop date: 12/15/15 9:00:00Notes: (Same as: Humble) No Longer Active 11/16/2015 [facility] Losartan 100 mg, 2 tab, Route: PO, Drug form: TAB, Daily, Dosing Weight 81.08, kg, Start date: 11/15/15 21:00:00, Duration: 30 day, Stop date: 12/15/15 9:00:00Notes: (Same as: Humble) No Longer Active 11/16/2015 [facility] Losartan 100 mg, Route: PO, Drug form: TAB, Daily, Dosing Weight 81.08, kg, Start date: 11/15/15 9:00:00, Duration: 30 day, Stop date: 12/14/15 9:00:00 No Longer Active 11/15/2015 [facility] Citalopram 10 mg, 1 tab, Route: PO, Drug form: TAB, Daily, Dosing Weight 81.08, kg, Start date: 11/15/15 9:00:00, Duration: 30 day, Stop date: 12/14/15 9:00:00 No Longer Active 11/15/2015 [facility] Thyroxine 112 microgram, 1 tab, Route: PO, Drug form: TAB, Q630AM, Dosing Weight 81.08, kg, Start date: 11/15/15 6:30:00, Duration: 30 day, Stop date: 12/14/15 6:30:00Notes: Take 1 hour before or 2 hours after meal; Enteral feeds may interefere with the absorption of this medication.(Same as:Levothroid) No Longer Active 11/15/2015 [facility] nitroglycerin 0.4 mg sublingual tablet 0.4 mg, 1 tab, Route: SL, Drug form: TAB, Q5Min, PRN Chest Pain, Start date: 11/15/15 0:07:00, Duration: 30 day, Stop date: 12/15/15 0:06:00Notes: (Same as:Nitroquick, Nitrostat) "Do Not Crush" Sublingual tablet No Longer Active 11/15/2015 [facility] atropine 0.5 mg, 5 mL, Route: IVP, Drug form: INJ, PRN, PRN Bradycardia, Start date: 11/15/15 0:07:00, Duration: 30 day, Stop date: 12/15/15 0:06:00 No Longer Active 11/15/2015 [facility] Lidocaine Hydrochloride 0.05 MG/MG Transdermal Patch 1 patch, Route: TOP, Daily, Drug form: FILM, Start date: 11/14/15 9:00:00, Duration: 30 day, Stop date: 12/13/15 9:00:00Notes: Apply only once for up to 12 hours in a 24-hour period (12 hours on and 12 hours off). (Same as: Lidoderm) "Remove old patch before application of new patch" No Longer Active 11/14/2015 [facility] montelukast 10 mg, PO, QPM, 0 Refill(s) Active 11/14/2015 [facility] Citalopram 20 mg, PO, Daily, 0 Refill(s) Active 11/14/2015 [facility] Thyroxine 112 microgram, PO, Daily, 0 Refill(s) Active 11/14/2015 [facility] Omeprazole 40 mg, PO, BID, 0 Refill(s) Active 11/14/2015 [facility] Losartan 100 mg, PO, Daily, 0 Refill(s) Active 11/14/2015 [facility] normal saline 0.9% IV 1,000 mL 1,000 mL, Rate: 125 ml/hr, Infuse over: 8 hr, Route: IV, Dosing Weight 81.08 kg, Total Volume: 1,000, Start date: 11/14/15 8:35:00, Duration: 30 day, Stop date: 12/14/15 8:34:00 No Longer Active 11/14/2015 [facility] Morphine 4 mg, 2 mL, Route: IVP, Drug form: INJ, Q4H, Dosing Weight 81.08, kg, PRN Pain Score 7-10, Start date: 11/14/15 4:19:00, Duration: 30 day, Stop date: 12/14/15 4:18:00Notes: (Same as:MORPhine Sulfate) No Longer Active 11/14/2015 [facility] Acetaminophen 325 MG / Hydrocodone Bitartrate 10 MG Oral Tablet 1 tab, Route: PO, Drug Form: TAB, Dosing Weight 79.091, kg, Q4H, PRN Pain Score 1-3, Start date: 11/14/15 4:19:00, Duration: 30 day, Stop date: 12/14/15 4:18:00Notes: Do not exceed 4gm/day of acetaminophen. (Same as: [place] 325/10) No Longer Active 11/14/2015 [facility] Acetaminophen 325 mg, 1 tab, Route: PO, Drug form: TAB, Q4H, Dosing Weight 81.08, kg, PRN Pain Score 1-3, Start date: 11/14/15 4:19:00, Duration: 30 day, Stop date: 12/14/15 4:18:00Notes: Do not exceed 4 gm/day. (Same as: Tylenol) No Longer Active 11/14/2015 [facility] Sodium Chloride 0.154 MEQ/ML Injectable Solution 1,000 mL, 1,000 ml/hr, Infuse Over: 1 hr, Route: IV, 1,000, Drug form: INJ, ONCE, Priority: STAT, Dosing Weight 79.091 kg, Start date: 11/13/15 21:26:00, Duration: 1 doses or times, Stop date: 11/13/15 21:26:00 Inactive 11/14/2015 [facility] Ondansetron 4 mg, 2 mL, Route: IVP, Drug form: INJ, ONCE, Dosing Weight 79.091, kg, Priority: STAT, Start date: 11/13/15 21:26:00, Stop date: 11/13/15 21:26:00Notes: (Same as: Zofran) MEDICATION WASTE Product Size: 4 mg Product Wasted: ___ mg Inactive 11/14/2015 [facility] Morphine 4 mg, 2 mL, Route: IVP, Drug form: INJ, ONCE, Dosing Weight 79.091, kg, Priority: STAT, Start date: 11/13/15 21:26:00, Stop date: 11/13/15 21:26:00Notes: (Same as:MORPhine Sulfate) Inactive 11/14/2015 [facility] Saline Flush 0.9% 10 mL, Route: IVP, Drug Form: INJ, Dosing Weight 79.091, kg, PRN, PRN Line Flush, Start date: 11/13/15 16:45:00, Duration: 30 day, Stop date: 12/13/15 16:44:00Notes: (Same as: BD Posiflush) No Longer Active 11/13/2015 [facility] Allergies, Adverse Reactions, Alerts Substance Category Reaction Severity Reaction type Status Date Reported Comments Source Bextra Assertion Drug allergy Active [facility] Cipro Assertion Drug allergy Active [facility] Bactrim Assertion Drug allergy Active [facility] Immunizations Immunization Date Given Site Status Last Updated Comments Source pneumococcal 13-valent vaccine 01/02/2018 Not Given [facility] influenza virus vaccine, inactivated 05/30/2009 Right deltoid completed [facility] pneumococcal 23-valent vaccine 05/30/2009 Right deltoid completed [facility] Results Order Name Results Value Reference Range Date Interpretation Comments Source URINE AND STOOL UA Color Ltyellow 01/09/2018 [facility] URINE AND STOOL UA Urobilinogen <=1.0 mg/dL 0.1 - 1.0 01/09/2018 [facility] URINE AND STOOL UA Sq Epi None Seen 01/09/2018 [facility] URINE AND STOOL UA Ketones Negative mg/dL Negative mg/dL 01/09/2018 [facility] URINE AND STOOL UA Spec Grav 1.006 <=1.030 01/09/2018 [facility] URINE AND STOOL UA Turbidity Clear (01/09/18 6:30 PM) Clear 01/09/2018 [facility] URINE AND STOOL UA Blood Negative (01/09/18 6:30 PM) Negative 01/09/2018 [facility] URINE AND STOOL UA Glucose Negative mg/dL Negative mg/dL 01/09/2018 [facility] URINE AND STOOL UA Protein Negative mg/dL Negative mg/dL 01/09/2018 [facility] URINE AND STOOL UA pH 7.0 5.0 - 8.0 01/09/2018 [facility] URINE AND STOOL UA WBC 4 /HPF 0 - 5 01/09/2018 [facility] URINE AND STOOL UA Bili Negative *NA* (01/09/18 6:30 PM) Negative 01/09/2018 [facility] URINE AND STOOL UA Leuk Est Negative (01/09/18 6:30 PM) Negative 01/09/2018 [facility] URINE AND STOOL UA Nitrite Negative (01/09/18 6:30 PM) Negative 01/09/2018 [facility] ELECTROLYTES AGAP 7.7 meq/L 10.0 - 20.0 01/07/2018 [facility] ELECTROLYTES eGFR 61 mL/min/1.73m2 01/07/2018 Result Comment: The eGFR is calculated using the [...] from the National Kidney Disease Education Program (NKDEP) which additionally recommends that when the eGFR is used in patients with extremes of body mass index for purposes of drug dosing, the eGFR should be multiplied by the estimated BMI. [facility] ELECTROLYTES CO2 32 meq/L 24 - 32 01/07/2018 [facility] ELECTROLYTES Calcium Lvl 8.9 mg/dL 8.5 - 10.5 01/07/2018 [facility] ELECTROLYTES BUN 22 mg/dL 7 - 22 01/07/2018 [facility] ELECTROLYTES Sodium Lvl 139 meq/L 135 - 145 01/07/2018 [facility] ELECTROLYTES Potassium Lvl 4.7 meq/L 3.5 - 5.1 01/07/2018 [facility] ELECTROLYTES Chloride Lvl 104 meq/L 95 - 109 01/07/2018 [facility] ELECTROLYTES Glucose Lvl 97 mg/dL 70 - 99 01/07/2018 [facility] ELECTROLYTES Creatinine Lvl 0.92 mg/dL 0.50 - 1.40 01/07/[address] [facility] WBC 4.5 K/CMM 3.7 - 10.4 01/07/[address] [facility] MPV 7.3 fL 7.4 - 10.4 01/07/[address] [facility] Hgb 9.2 g/dL 12.0 - 16.0 01/07/[address] [facility] Hct 27.6 % 36.0 - 48.0 01/07/[address] [facility] RBC 2.85 M/CMM 4.20 - 5.40 01/07/[address] [facility] MCV 97.0 fL 80.0 - 98.0 01/07/[address] [facility] MCH 32.5 pg 27.0 - 31.0 01/07/[address] [facility] MCHC 33.5 g/dL 32.0 - 36.0 01/07/[address] [facility] RDW 15.2 % 11.5 - 14.5 01/07/[address] [facility] Platelet 230 K/CMM 133 - 450 01/07/[address] [facility] Lymphocytes # 0.9 K/CMM 1.0 - 5.5 01/07/[address] [facility] Monocytes # 0.4 K/CMM 0.0 - 0.8 01/07/[address] [facility] Eosinophils # 0.2 K/CMM 0.0 - 0.5 01/07/2018 [facility] HEMATOLOGY Segs 68.0 % 45.0 - 75.0 01/07/2018 [facility] HEMATOLOGY Lymphocytes 19.0 % 20.0 - 40.0 01/07/2018 [facility] HEMATOLOGY Monocytes 8.2 % 2.0 - 12.0 01/07/2018 [facility] HEMATOLOGY Eosinophils 4.3 % 0.0 - 4.0 01/07/2018 [facility] HEMATOLOGY Basophils 0.5 % 0.0 - 1.0 01/07/2018 [facility] HEMATOLOGY Segs-Bands # 3.1 K/CMM 1.5 - 8.1 01/07/2018 [facility] CHEM PANEL Vitamin D, 25-OH, Total 41.4 ng/mL 30.0 - 100.0 01/04/2018 [facility] CHEM PANEL Magnesium Lvl 1.9 mg/dL 1.8 - 2.4 01/04/2018 [facility] CHEM PANEL BUN 12 mg/dL 7 - 22 01/04/2018 [facility] CHEM PANEL Chloride Lvl 105 meq/L 95 - 109 01/04/2018 [facility] CHEM PANEL CO2 31 meq/L 24 - 32 01/04/2018 [facility] CHEM PANEL Creatinine Lvl 0.74 mg/dL 0.50 - 1.40 01/04/2018 [facility] CHEM PANEL Potassium Lvl 4.0 meq/L 3.5 - 5.1 01/04/2018 [facility] CHEM PANEL Sodium Lvl 142 meq/L 135 - 145 01/04/2018 [facility] CHEM PANEL eGFR 80 mL/min/1.73m2 01/04/2018 Result Comment: The eGFR is calculated using the [...] from the National Kidney Disease Education Program (NKDEP) which additionally recommends that when the eGFR is used in patients with extremes of body mass index for purposes of drug dosing, the eGFR should be multiplied by the estimated BMI. [facility] CHEM PANEL Glucose Lvl 98 mg/dL 70 - 99 01/04/2018 [facility] CHEM PANEL Calcium Lvl 8.3 mg/dL 8.5 - 10.5 01/04/2018 [facility] CHEM PANEL AGAP 10.0 meq/L 10.0 - 20.0 01/04/2018 [facility] CHEM PANEL Phosphorus 2.4 mg/dL 2.5 - 4.5 01/04/2018 [facility] CHEM PANEL Albumin Lvl 2.2 g/dL 3.5 - 5.0 01/04/2018 [facility] HEMATOLOGY Eosinophils # 0.1 K/CMM 0.0 - 0.5 01/04/2018 [facility] HEMATOLOGY Monocytes # 0.4 K/CMM 0.0 - 0.8 01/04/2018 [facility] HEMATOLOGY Lymphocytes # 0.7 K/CMM 1.0 - 5.5 01/04/2018 [facility] HEMATOLOGY Basophils 0.3 % 0.0 - 1.0 01/04/2018 [facility] HEMATOLOGY Segs-Bands # 3.4 K/CMM 1.5 - 8.1 01/04/2018 [facility] HEMATOLOGY Eosinophils 2.4 % 0.0 - 4.0 01/04/[address] [facility] Monocytes 8.4 % 2.0 - 12.0 01/04/[address] [facility] Lymphocytes 15.4 % 20.0 - 40.0 01/04/[address] [facility] Segs 73.5 % 45.0 - 75.0 01/04/2018 [facility] HEMATOLOGY INR 1.12 0.85 - 1.17 01/04/[address] [facility] PTT 34.3 s 22.9 - 35.8 01/04/[address] [facility] PT 14.4 s 12.0 - 14.7 01/04/2018 [facility] HEMATOLOGY MCV 97.1 fL 80.0 - 98.0 01/04/[address] [facility] MCH 33.4 pg 27.0 - 31.0 01/04/[address] [facility] MCHC 34.4 g/dL 32.0 - 36.0 01/04/[address] [facility] Hgb 9.2 g/dL 12.0 - 16.0 01/04/[address] [facility] Hct 26.7 % 36.0 - 48.0 01/04/[address] [facility] RBC 2.75 M/CMM 4.20 - 5.40 01/04/2018 [facility] HEMATOLOGY Platelet 166 K/CMM 133 - 450 01/04/2018 [facility] HEMATOLOGY RDW 14.8 % 11.5 - 14.5 01/04/2018 [facility] HEMATOLOGY MPV 7.2 fL 7.4 - 10.4 01/04/2018 [facility] HEMATOLOGY WBC 4.6 K/CMM 3.7 - 10.4 01/04/2018 [facility] IMMUNOLOGY Prealbumin 8.2 mg/dL 18.0 - 45.0 01/04/2018 [facility] SPECIAL CHEMISTRY Hgb A1C 6.2 % <=5.6 % 01/04/2018 [facility] IMMUNOLOGY Prealbumin 9.9 mg/dL 18.0 - 45.0 01/04/2018 [facility] ELECTROLYTES AGAP 7.5 meq/L 10.0 - 20.0 01/02/2018 [facility] ELECTROLYTES Glucose Lvl 117 mg/dL 70 - 99 01/02/2018 [facility] ELECTROLYTES Chloride Lvl 106 meq/L 95 - 109 01/02/2018 [facility] ELECTROLYTES Potassium Lvl 4.5 meq/L 3.5 - 5.1 01/02/2018 [facility] ELECTROLYTES Calcium Lvl 7.9 mg/dL 8.5 - 10.5 01/02/2018 [facility] ELECTROLYTES CO2 31 meq/L 24 - 32 01/02/2018 [facility] ELECTROLYTES Sodium Lvl 140 meq/L 135 - 145 01/02/2018 [facility] ELECTROLYTES BUN 20 mg/dL 7 - 22 01/02/2018 [facility] ELECTROLYTES Creatinine Lvl 1.12 mg/dL 0.50 - 1.40 01/02/2018 [facility] ELECTROLYTES eGFR 49 mL/min/1.73m2 01/02/2018 Result Comment: The eGFR is calculated using the [...] from the National Kidney Disease Education Program (NKDEP) which additionally recommends that when the eGFR is used in patients with extremes of body mass index for purposes of drug dosing, the eGFR should be multiplied by the estimated BMI. [facility] WBC 8.2 K/CMM 3.7 - 10.4 01/02/[address] [facility] MPV 7.2 fL 7.4 - 10.4 01/02/[address] [facility] Platelet 161 K/CMM 133 - 450 01/02/[address] [facility] RBC 3.12 M/CMM 4.20 - 5.40 01/02/[address] [facility] Hgb 10.1 g/dL 12.0 - 16.0 01/02/[address] [facility] MCV 97.3 fL 80.0 - 98.0 01/02/[address] [facility] Hct 30.3 % 36.0 - 48.0 01/02/[address] [facility] MCHC 33.4 g/dL 32.0 - 36.0 01/02/[address] [facility] RDW 15.1 % 11.5 - 14.5 01/02/[address] [facility] MCH 32.5 pg 27.0 - 31.0 01/02/[address] [facility] Lymphocytes 5.8 % 20.0 - 40.0 01/02/[address] [facility] Basophils 0.1 % 0.0 - 1.0 01/02/[address] [facility] Segs-Bands # 7.1 K/CMM 1.5 - 8.1 01/02/[address] [facility] Segs 87.5 % 45.0 - 75.0 01/02/[address] [facility] Monocytes 6.5 % 2.0 - 12.0 01/02/[address] [facility] Eosinophils 0.1 % 0.0 - 4.0 01/02/[address] [facility] Lymphocytes # 0.5 K/CMM 1.0 - 5.5 01/02/[address] [facility] Monocytes # 0.5 K/CMM 0.0 - 0.8 01/02/2018 [facility] Pelvis AP DX Pelvis AP DX Patient Name: OCTAVIA LOPEZ : 1945; Age: 72 years y/o Female MR: [id number] Study: Pelvis AP DX 01/01/2018 3:06 PM CDT Ordering Physician: Vern Ho DO Comparison: 12/31/2017 Clinical Indication: - Left hip intraoperative view; AP pelvis with the field of view centered on the left hip demonstrates interval placement of left hip prosthesis with resection of the left femoral head and neck. The prosthesis components are in satisfactory position. Postoperative changes are noted in the soft tissues about the left hip joint. No acute fracture or dislocation. SL: [id number] 01/01/2018 - - Read by: Tre Banks MD Dictated Date/time: 01/02/18 09:17 Electronically Signed by: Tre Banks MD 01/02/18 09:18 FINAL REPORT [facility] CHEM PANEL Vitamin D, 25-OH, Total 56.4 ng/mL 30.0 - 100.0 12/31/2017 [facility] PARATHYROID PROFILE Ca Norm WB 1.06 mMol/L 1.05 - 1.25 12/31/2017 [facility] PARATHYROID PROFILE Ca Ion WB 1.10 mMol/L 1.05 - 1.25 12/31/2017 [facility] PARATHYROID PROFILE PTH Intact 112.8 pg/mL 18.4 - 80.1 12/31/2017 [facility] BLOOD BANK RESULTS ABO/Rh O POS 12/31/2017 [facility] BLOOD BANK RESULTS Antibody Scrn Negative (12/31/17 2:51 PM) 12/31/2017 [facility] ELECTROLYTES AGAP 11.9 meq/L 10.0 - 20.0 12/31/2017 [facility] ELECTROLYTES eGFR 52 mL/min/1.73m2 12/31/2017 Result Comment: The eGFR is calculated using the [...] from the National Kidney Disease Education Program (NKDEP) which additionally recommends that when the eGFR is used in patients with extremes of body mass index for purposes of drug dosing, the eGFR should be multiplied by the estimated BMI. [facility] ELECTROLYTES Sodium Lvl 141 meq/L 135 - 145 12/31/2017 [facility] ELECTROLYTES Chloride Lvl 104 meq/L 95 - 109 12/31/2017 [facility] ELECTROLYTES CO2 29 meq/L 24 - 32 12/31/2017 [facility] ELECTROLYTES Calcium Lvl 8.7 mg/dL 8.5 - 10.5 12/31/2017 [facility] ELECTROLYTES Glucose Lvl 101 mg/dL 70 - 99 12/31/2017 [facility] ELECTROLYTES BUN 20 mg/dL 7 - 22 12/31/2017 [facility] ELECTROLYTES Creatinine Lvl 1.05 mg/dL 0.50 - 1.40 12/31/2017 [facility] ELECTROLYTES Potassium Lvl 3.9 meq/L 3.5 - 5.1 12/31/2017 [facility] HEMATOLOGY Hct 37.9 % 36.0 - 48.0 12/31/2017 [facility] HEMATOLOGY Hgb 12.7 g/dL 12.0 - 16.0 12/31/2017 [facility] HEMATOLOGY RBC 3.94 M/CMM 4.20 - 5.40 12/31/2017 [facility] HEMATOLOGY WBC 9.6 K/CMM 3.7 - 10.4 12/31/[address] [facility] MCHC 33.6 g/dL 32.0 - 36.0 12/31/[address] [facility] MCH 32.3 pg 27.0 - 31.0 12/31/2017 [facility] HEMATOLOGY MCV 96.2 fL 80.0 - 98.0 12/31/2017 [facility] HEMATOLOGY MPV 7.0 fL 7.4 - 10.4 12/31/2017 [facility] HEMATOLOGY Platelet 219 K/CMM 133 - 450 12/31/2017 [facility] HEMATOLOGY RDW 15.3 % 11.5 - 14.5 12/31/2017 [facility] HEMATOLOGY Segs-Bands # 8.5 K/CMM 1.5 - 8.1 12/31/2017 [facility] HEMATOLOGY Lymphocytes # 0.6 K/CMM 1.0 - 5.5 12/31/2017 [facility] HEMATOLOGY Monocytes # 0.4 K/CMM 0.0 - 0.8 12/31/2017 [facility] HEMATOLOGY Segs 89.5 % 45.0 - 75.0 12/31/2017 [facility] HEMATOLOGY Lymphocytes 6.1 % 20.0 - 40.0 12/31/2017 [facility] HEMATOLOGY Monocytes 4.3 % 2.0 - 12.0 12/31/2017 [facility] HEMATOLOGY Basophils 0.1 % 0.0 - 1.0 12/31/2017 [facility] HEMATOLOGY INR 1.06 0.85 - 1.17 12/31/2017 [facility] HEMATOLOGY PTT 27.5 s 22.9 - 35.8 12/31/2017 [facility] HEMATOLOGY PT 13.8 s 12.0 - 14.7 12/31/2017 [facility] Pelvis wo IV contrast CT Pelvis wo IV contrast CT Study: Pelvis wo IV contrast CT Clinical Indication: - L hip pain Comparison: Plain films of the pelvis and left hip performed earlier the same day TECHNIQUE: Multiple axial CT images of the pelvis were acquired without the administration of intravenous contrast. Multiplanar reformatted images were performed. JLJ=941.49 mGy-cm FINDINGS: The bones are demineralized. There is an acute, displaced transcervical left femoral neck fracture, with anterior apex angulation. There is no suspicious osseous lesion in the femoral neck to suggest pathologic fracture. Sclerotic bone island in the left iliac bone is seen. The remaining osseous structures are intact. Anatomic alignment is maintained about the sacroiliac joints and symphysis pubis. Mild right hip osteoarthrosis is seen. Chondrocalcinosis of the hips and symphysis pubis is noted. Degenerative disc disease and advanced facet arthrosis of the lower lumbar spine is seen. Limited views of the pelvic organs show multiple colonic diverticula. Postoperative changes of prior hysterectomy are seen. Arterial calcifications are noted. IMPRESSION: 1. Acute, displaced transcervical left femoral neck fracture. SL: [id number] 12/31/2017 - - Read by: Gustavo Fitzgerald MD Dictated Date/time: 12/31/17 13:48 Electronically Signed by: Gustavo Fitzgerald MD 12/31/17 13:54 FINAL REPORT [facility] Brain wo contrast CT Brain wo contrast CT Clinical Indication: - fall. Comparison: None. TECHNIQUE: CT images were obtained from the foramen magnum to the vertex without the use of intravenous contrast on a multidetector CT. CT imaging was performed with exposure control parameters to reduce radiation dose. Coronal and sagittal reconstructions were obtained. CT radiation dose DLP: 981 mGy-cm FINDINGS: There is no specific evidence of intracranial hemorrhage, acute infarction or intracranial mass lesion. There are scattered hypodensities in the periventricular and subcortical white matter which are nonspecific but may reflect a component of chronic small vessel ischemic disease. The ventricles are within normal limits in size and configuration without evidence of hydrocephalus. There is atherosclerotic calcification involving the visualized internal carotid arteries. The paranasal sinuses and mastoid air cells are clear. The bones and extracranial soft tissues are not significantly changed, including prominent degenerative changes of the temporomandibular joints, right greater than left. If there is further concern for intracranial pathology or acute stroke, MRI of the brain may be performed for complete assessment. IMPRESSION: No specific evidence of intracranial hemorrhage, acute infarction, intracranial mass lesion or hydrocephalus. SL: [id number] 12/31/2017 - - Read by: Frederic Hightower MD Dictated Date/time: 12/31/17 13:18 Electronically Signed by: Frederic Hightower MD 12/31/17 13:24 FINAL REPORT [facility] Spine cervical wo contrast CT Spine cervical wo contrast CT Clinical Indication: - fall. Comparison: None Technique: Multi-detector CT imaging of the cervical spine is performed. Coronal and sagittal reconstructions were obtained. CT imaging was performed with exposure control parameters to reduce radiation dose. CT Radiation Dose DLP 668 mGy-cm FINDINGS: There is no specific evidence of acute displaced fracture in the cervical spine, noting that a small ossific fragment adjacent to the left facet joints at C4-C5 is well-corticated and favored to be degenerative in etiology. There is no specific evidence of traumatic malalignment of the cervical spine. There is 3 mm of anterolisthesis of C4 on C5 favored to be degenerative in etiology, given no evidence of surrounding fat stranding to suggest that it is secondary to acute trauma. Vertebral body heights are preserved. No suspicious lytic lesion is identified. There are scattered degenerative disc and facet changes in the cervical spine including intervertebral disc height loss vertebral endplate changes, most pronounced at C4-C5, C5-C6 and C6-C7. This results in at least moderate osseous spinal canal stenosis and severe bilateral osseous neural foraminal stenosis at C5-C6 and C6-C7. There is no specific evidence of paraspinal or epidural hematoma. The paravertebral soft tissues are unremarkable. The neck spaces are symmetric without specific evidence of cervical lymphadenopathy. There is retropharyngeal course of the bilateral carotid arteries. There is no evidence of consolidation or suspicious pulmonary nodule in the lung apices. CT myelogram or MRI of the cervical spine may be performed, if there is further concern. IMPRESSION: No specific evidence of acute displaced fracture or traumatic malalignment in the cervical spine. Degenerative changes of the cervical spine, as described above, including at least moderate osseous spinal canal stenosis and up to severe neural foraminal stenosis. SL: [id number] 12/31/2017 - - Read by: Frederic Hightower MD Dictated Date/time: 12/31/17 13:25 Electronically Signed by: Frederic Hightower MD 12/31/17 13:35 FINAL REPORT [facility] Chest 1view DX Chest 1view DX Clinical Indication: Fall. Comparison: Chest x-ray 11/15/2015 Technique: Frontal view of the chest. Findings: Lines and Tubes: None. Lungs and Pleura: Left basilar atelectasis or scar. Low inspiratory result without focal consolidation or pulmonary edema. No pneumothorax. Heart and Mediastinum: Normal cardiomediastinal silhouette. Bones: No acute osseous abnormality. No displaced rib fractures. IMPRESSION: Low inspiratory result with left basilar atelectasis or scar. SL: [id number] 12/31/2017 - - Read by: Aurelio Adams MD Dictated Date/time: 12/31/17 12:43 Electronically Signed by: Aurelio Adams MD 12/31/17 12:44 FINAL REPORT [facility] Hip 2/3 views uni w pelvis DX Hip 2/3 views uni w pelvis DX Study: Left hip, 2 views Clinical Indication: Left hip pain post fall Comparison: None FINDINGS: 2 views of the left hip show an acute, displaced transcervical femoral neck fracture. Bones are demineralized. IMPRESSION: Acute, displaced transcervical left femoral neck fracture. SL: [id number] 12/31/2017 - - Read by: Gustavo Fitzgerald MD Dictated Date/time: 12/31/17 12:49 Electronically Signed by: Gustavo Fitzgerald MD 12/31/17 12:49 FINAL REPORT [facility] Pelvis AP DX Pelvis AP DX Study: Pelvis, single view Clinical Indication: Left hip pain post fall Comparison: None FINDINGS: Single frontal view of the pelvis shows an acute, displaced transcervical left femoral neck fracture. Degenerative changes in the lower lumbar spine are seen. Bones are demineralized. IMPRESSION: Acute, displaced transcervical left femoral neck fracture. SL: [id number] 12/31/2017 - - Read by: Gustavo Fitzgerald MD Dictated Date/time: 12/31/17 12:44 Electronically Signed by: Gustavo Fitzgerald MD 12/31/17 12:44 FINAL REPORT [facility] Sinus paranasal series DX Sinus paranasal series DX Sinus paranasal series DX CLINICAL HISTORY: J32.9 Chronic sinusitis, unspecified FINDINGS: 3 views of the paranasal sinuses are submitted for review. Maxillary sinuses are clear without air-fluid levels. Sphenoid sinuses and frontal sinuses are clear. Visualized portion of the ethmoid air cells are clear. The nasal septum is midline. Further evaluation may be obtained with CT of paranasal sinuses for a more complete radiographic assessment as clinically indicated. IMPRESSION: No significant paranasal sinus disease is visualized. SL: [id number] 11/21/2016 - - Read by: Ankur Gutierrez MD Dictated Date/time: 11/21/16 16:28 Electronically Signed by: Ankur Gutierrez MD 11/21/16 16:32 FINAL REPORT [facility] Chest 2 views DX Chest 2 views DX Study: Chest 2 views DX Clinical Indication: Shortness of Breath Comparison: 11/14/2015 FINDINGS: Cardiac silhouette is normal in size. Left lower lobe consolidation is present and stable. Small underlying left pleural effusion is stable. No pneumothorax is seen. Mild right apical scarring is present. The osseous structures are unremarkable. IMPRESSION: Stable small left basilar consolidation with small left pleural effusion. SL: [id number] 11/15/2015 - - Read by: Gustavo Fitzgerald MD Dictated Date/time: 11/15/15 17:42 Electronically Signed by: Gustavo Fitzgerald MD 11/15/15 17:42 FINAL REPORT [facility] Segs 75.3 % 45.0 - 75.0 11/15/[address] [facility] Monocytes 7.0 % 2.0 - 12.0 11/15/[address] [facility] Eosinophils 2.0 % 0.0 - 4.0 11/15/[address] [facility] Lymphocytes 15.5 % 20.0 - 40.0 11/15/[address] [facility] Basophils 0.2 % 0.0 - 1.0 11/15/[address] [facility] Segs-Bands # 3.8 K/CMM 1.5 - 8.1 11/15/[address] [facility] Lymphocytes # 0.8 K/CMM 1.0 - 5.5 11/15/[address] [facility] Monocytes # 0.4 K/CMM 0.0 - 0.8 11/15/[address] [facility] Eosinophils # 0.1 K/CMM 0.0 - 0.5 11/15/2015 [facility] HEMATOLOGY RBC 3.76 M/CMM 4.20 - 5.40 11/15/2015 [facility] HEMATOLOGY Hgb 11.5 g/dL 12.0 - 16.0 11/15/2015 [facility] HEMATOLOGY Hct 35.5 % 36.0 - 48.0 11/15/2015 [facility] HEMATOLOGY MCV 94.5 fL 80.0 - 98.0 11/15/2015 [facility] HEMATOLOGY MCHC 32.4 g/dL 32.0 - 36.0 11/15/2015 [facility] HEMATOLOGY MCH 30.6 pg 27.0 - 31.0 11/15/2015 [facility] HEMATOLOGY RDW 14.9 % 11.5 - 14.5 11/15/2015 [facility] HEMATOLOGY Platelet 183 K/CMM 133 - 450 11/15/2015 [facility] HEMATOLOGY MPV 7.2 fL 7.4 - 10.4 11/15/2015 [facility] HEMATOLOGY WBC 5.1 K/CMM 3.7 - 10.4 11/15/2015 [facility] URINE AND STOOL UA Urobilinogen <=1.0 mg/dL 0.1 - 1.0 11/14/2015 [facility] URINE AND STOOL UA Leuk Est Negative (11/14/15 5:34 PM) Negative 11/14/2015 [facility] URINE AND STOOL UA Nitrite Negative (11/14/15 5:34 PM) Negative 11/14/2015 [facility] URINE AND STOOL UA WBC 1 /HPF 0 - 5 11/14/2015 [facility] URINE AND STOOL UA Sq Epi None Seen 11/14/2015 [facility] URINE AND STOOL UA RBC 1 /HPF 0 - 2 11/14/2015 [facility] URINE AND STOOL UA Color Yellow *NA* (11/14/15 5:34 PM) Yellow 11/14/2015 [facility] URINE AND STOOL UA Spec Grav 1.042 <=1.030 11/14/2015 [facility] URINE AND STOOL UA Turbidity Clear (11/14/15 5:34 PM) Clear 11/14/2015 [facility] URINE AND STOOL UA Protein Negative mg/dL Negative mg/dL 11/14/2015 [facility] URINE AND STOOL UA Ketones Negative mg/dL Negative mg/dL 11/14/2015 [facility] URINE AND STOOL UA Glucose Negative mg/dL Negative mg/dL 11/14/2015 [facility] URINE AND STOOL UA Blood Negative (3/27/16 5:34 PM) Negative 11/14/2015 [facility] URINE AND STOOL UA Bili Negative *NA* (11/14/15 5:34 PM) Negative 11/14/2015 [facility] URINE AND STOOL UA pH 5.0 5.0 - 8.0 11/14/2015 [facility] Shoulder series DX Shoulder series DX Shoulder series DX CLINICAL HISTORY: Pain from a fall FINDINGS/IMPRESSION: 3 views of the left shoulder are submitted for review. Bones are osteopenic. There is a nondisplaced fracture distal margin of the left clavicle. The AC joint is otherwise intact. Glenoid intact. IMPRESSION: Nondisplaced distal clavicular fracture SL: [id number] 11/14/2015 - - Read by: Roberto Ricardo MD Dictated Date/time: 11/14/15 19:00 Electronically Signed by: Roberto Ricardo MD 11/14/15 19:01 FINAL REPORT [facility] CHEM PANEL Lipase Lvl 75 unit/L 73 - 393 11/14/2015 [facility] CHEM PANEL Amylase Lvl 71 unit/L 25 - 115 11/14/2015 [facility] ELECTROLYTES AGAP 11.8 meq/L 10.0 - 20.0 11/14/2015 [facility] ELECTROLYTES eGFR 67 mL/min/1.73m2 11/14/2015 Result Comment: The eGFR is calculated using the [...] from the National Kidney Disease Education Program (NKDEP) which additionally recommends that when the eGFR is used in patients with extremes of body mass index for purposes of drug dosing, the eGFR should be multiplied by the estimated BMI. [facility] ELECTROLYTES Creatinine Lvl 0.86 mg/dL 0.50 - 1.40 11/14/2015 [facility] ELECTROLYTES BUN 22 mg/dL 7 - 22 11/14/2015 [facility] ELECTROLYTES Glucose Lvl 90 mg/dL 70 - 99 11/14/2015 [facility] ELECTROLYTES Calcium Lvl 8.5 mg/dL 8.5 - 10.5 11/14/2015 [facility] ELECTROLYTES Potassium Lvl 3.8 meq/L 3.5 - 5.1 11/14/2015 [facility] ELECTROLYTES Sodium Lvl 140 meq/L 135 - 145 11/14/2015 [facility] ELECTROLYTES CO2 27 meq/L 24 - 32 11/14/2015 [facility] ELECTROLYTES Chloride Lvl 105 meq/L 95 - 109 11/14/2015 [facility] HEMATOLOGY Monocytes # 0.3 K/CMM 0.0 - 0.8 11/14/2015 [facility] HEMATOLOGY Eosinophils # 0.1 K/CMM 0.0 - 0.5 11/14/2015 [facility] HEMATOLOGY Segs 72.7 % 45.0 - 75.0 11/14/2015 [facility] HEMATOLOGY Lymphocytes 18.4 % 20.0 - 40.0 11/14/2015 [facility] HEMATOLOGY Monocytes 7.6 % 2.0 - 12.0 11/14/2015 [facility] HEMATOLOGY Eosinophils 1.2 % 0.0 - 4.0 11/14/2015 [facility] HEMATOLOGY Basophils 0.1 % 0.0 - 1.0 11/14/2015 [facility] HEMATOLOGY Segs-Bands # 3.4 K/CMM 1.5 - 8.1 11/14/2015 [facility] HEMATOLOGY Lymphocytes # 0.8 K/CMM 1.0 - 5.5 11/14/2015 [facility] HEMATOLOGY RBC 3.78 M/CMM 4.20 - 5.40 11/14/2015 [facility] HEMATOLOGY WBC 4.6 K/CMM 3.7 - 10.4 11/14/2015 [facility] HEMATOLOGY Hgb 11.5 g/dL 12.0 - 16.0 11/14/2015 [facility] HEMATOLOGY MCV 94.6 fL 80.0 - 98.0 11/14/2015 [facility] HEMATOLOGY Hct 35.8 % 36.0 - 48.0 11/14/2015 [facility] HEMATOLOGY MCH 30.4 pg 27.0 - 31.0 11/14/2015 [facility] HEMATOLOGY MPV 7.5 fL 7.4 - 10.4 11/14/2015 [facility] HEMATOLOGY MCHC 32.2 g/dL 32.0 - 36.0 11/14/2015 [facility] HEMATOLOGY RDW 15.1 % 11.5 - 14.5 11/14/2015 [facility] HEMATOLOGY Platelet 192 K/CMM 133 - 450 11/14/2015 [facility] Chest 1view DX Chest 1view DX Portable chest: There is a shallow inspiration. There is mild bibasilar subsegmental atelectasis showing no change compared to the previous day. The upper lungs are clear. Minimal left apical pneumothorax is smaller in appearance. There are no other new findings. SL 13 11/14/2015 - - Read by: Cory Cordova MD Dictated Date/time: 11/14/15 08:00 Electronically Signed by: Cory Cordova MD 11/14/15 08:01 FINAL REPORT [facility] URINE AND STOOL UA pH 5.0 5.0 - 8.0 11/14/2015 [facility] URINE AND STOOL UA Protein 30 mg/dL Negative mg/dL 11/14/2015 [facility] URINE AND STOOL UA Spec Grav 1.028 <=1.030 11/14/2015 [facility] URINE AND STOOL UA Color Yellow *NA* (11/13/15 9:59 PM) Yellow 11/14/2015 [facility] URINE AND STOOL UA Turbidity Slight *ABN* (11/13/15 9:59 PM) Clear 11/14/2015 [facility] URINE AND STOOL UA Glucose Negative mg/dL Negative mg/dL 11/14/2015 [facility] URINE AND STOOL UA Nitrite Negative (11/13/15 9:59 PM) Negative 11/14/2015 [facility] URINE AND STOOL UA Blood Small *ABN* (11/13/15 9:59 PM) Negative 11/14/2015 [facility] URINE AND STOOL UA Ketones Negative mg/dL Negative mg/dL 11/14/2015 [facility] URINE AND STOOL UA Bili Negative *NA* (11/13/15 9:59 PM) Negative 11/14/2015 [facility] URINE AND STOOL UA RBC 9 /HPF 0 - 2 11/14/2015 [facility] URINE AND STOOL UA Mucus Few /LPF None Seen /LPF 11/14/2015 [facility] URINE AND STOOL UA Sq Epi Occasional /LPF Few /LPF 11/14/2015 [facility] URINE AND STOOL UA WBC 1 /HPF 0 - 5 11/14/2015 [facility] URINE AND STOOL UA Leuk Est Negative (11/13/15 9:59 PM) Negative 11/14/2015 [facility] URINE AND STOOL UA Urobilinogen <=1.0 mg/dL 0.1 - 1.0 11/14/2015 [facility] Chest/Abdomen/Pelvis w IV contrast CT Chest/Abdomen/Pelvis w IV contrast CT Patient Name: OCTAVIA LOPEZ : 1945; Age: 70 years y/o Female MR: [id number] Study: Chest/Abdomen/Pelvis w IV contrast CT 11/13/2015 10:05 PM CDT Ordering Physician: Francia Hays DO Clinical Indication: Pain Post Trauma; Comparison: CT chest of 06/18/2015. Chest radiograph of this date. TECHNIQUE: Sequential trans-axial images were obtained thru [...] hysterectomy. 6. Constipation. Moderate diffuse colonic diverticulosis. SL: [id number] 11/13/2015 - - Read by: Ronan Antonio MD Dictated Date/time: 11/13/15 23:10 Electronically Signed by: Ronan Antonio MD 11/13/15 23:19 FINAL REPORT [facility] CARDIAC ENZYMES CK MB 3.5 ng/mL 0.5 - 3.6 11/13/2015 [facility] CARDIAC ENZYMES Troponin-I null 0.00 - 0.40 11/13/2015 [facility] CARDIAC ENZYMES Total CK 167 unit/L 12 - 191 11/13/2015 [facility] CARDIAC ENZYMES CK MB Index 2.1 0.0 - 2.5 11/13/2015 [facility] CHEM PANEL Lipase Lvl 110 unit/L 73 - 393 11/13/2015 [facility] CHEM PANEL Amylase Lvl 174 unit/L 25 - 115 11/13/2015 [facility] CHEM PANEL Lipase Lvl 109 unit/L 73 - 393 11/13/2015 [facility] ELECTROLYTES CO2 28 meq/L 24 - 32 11/13/2015 [facility] ELECTROLYTES Calcium Lvl 8.5 mg/dL 8.5 - 10.5 11/13/2015 [facility] ELECTROLYTES Chloride Lvl 105 meq/L 95 - 109 11/13/2015 [facility] ELECTROLYTES Creatinine Lvl 0.95 mg/dL 0.50 - 1.40 11/13/2015 [facility] ELECTROLYTES Sodium Lvl 140 meq/L 135 - 145 11/13/2015 [facility] ELECTROLYTES Potassium Lvl 3.8 meq/L 3.5 - 5.1 11/13/2015 [facility] ELECTROLYTES BUN 26 mg/dL 7 - 22 11/13/2015 [facility] ELECTROLYTES AST 23 unit/L 0 - 37 11/13/2015 [facility] ELECTROLYTES Bili Total 0.6 mg/dL 0.2 - 1.3 11/13/2015 [facility] ELECTROLYTES AGAP 10.8 meq/L 10.0 - 20.0 11/13/2015 [facility] ELECTROLYTES Alk Phos 107 unit/L 39 - 136 11/13/2015 [facility] ELECTROLYTES Total Protein 7.9 g/dL 6.4 - 8.4 11/13/2015 [facility] ELECTROLYTES Albumin Lvl 3.6 g/dL 3.5 - 5.0 11/13/2015 [facility] ELECTROLYTES ALT 25 unit/L 0 - 65 11/13/2015 [facility] ELECTROLYTES eGFR 60 mL/min/1.73m2 11/13/2015 Result Comment: The eGFR is calculated using the [...] from the National Kidney Disease Education Program (NKDEP) which additionally recommends that when the eGFR is used in patients with extremes of body mass index for purposes of drug dosing, the eGFR should be multiplied by the estimated BMI. [facility] ELECTROLYTES B/C Ratio 27 6 - 25 11/13/2015 [facility] ELECTROLYTES Globulin 4.3 g/dL 2.0 - 4.0 11/13/2015 [facility] ELECTROLYTES A/G Ratio 0.8 0.7 - 1.6 11/13/2015 [facility] ELECTROLYTES Glucose Lvl 121 mg/dL 70 - 99 11/13/2015 [facility] HEMATOLOGY Hct 43.5 % 36.0 - 48.0 11/13/[address] [facility] Hgb 14.1 g/dL 12.0 - 16.0 11/13/[address] [facility] WBC 8.5 K/CMM 3.7 - 10.4 11/13/[address] [facility] Platelet 222 K/CMM 133 - 450 11/13/[address] [facility] MCHC 32.4 g/dL 32.0 - 36.0 11/13/[address] [facility] MCH 30.4 pg 27.0 - 31.0 11/13/[address] [facility] RBC 4.62 M/CMM 4.20 - 5.40 11/13/[address] [facility] MCV 94.0 fL 80.0 - 98.0 11/13/[address] [facility] RDW 14.8 % 11.5 - 14.5 11/13/[address] [facility] MPV 7.2 fL 7.4 - 10.4 11/13/[address] [facility] Monocytes # 0.5 K/CMM 0.0 - 0.8 11/13/[address] [facility] Monocytes 5.8 % 2.0 - 12.0 11/13/[address] [facility] Lymphocytes 4.0 % 20.0 - 40.0 11/13/[address] [facility] Eosinophils 0.2 % 0.0 - 4.0 11/13/[address] [facility] Lymphocytes # 0.3 K/CMM 1.0 - 5.5 11/13/[address] [facility] Segs-Bands # 7.7 K/CMM 1.5 - 8.1 11/13/2015 [facility] HEMATOLOGY Basophils 0.1 % 0.0 - 1.0 11/13/2015 [facility] HEMATOLOGY Segs 89.9 % 45.0 - 75.0 11/13/2015 [facility] Chest 2 views DX Chest 2 views DX EXAM: Chest 2 views DX DATE: 11/13/2015 4:45 PM CDT INDICATION: Pain Post Trauma chest pain. COMPARISON: None. IMPRESSION: Mild left chest wall subcutaneous emphysema is present. No definite acute displaced rib fracture detected. Subjacent left pleural thickening and lower lobe and right lower lobe patchy infiltrates are present. Small left upper lobe pneumothorax is present. Critical findings were called to Lien Gandhi on 11/13/2015 6:33 PM CDT. SL: [id number] 11/13/2015 - - Read by: Ronan Antonio MD Dictated Date/time: 11/13/15 18:31 Electronically Signed by: Ronan Antonio MD 11/13/15 18:34 FINAL REPORT [facility] Chest wo contrast CT Chest wo contrast CT CLINICAL HISTORY: Disorder diaphragm. Chest CT performed without contrast. COMPARISON: No previous. Mild linear subsegmental atelectasis or fibrosis within the dependent portions. There is mild bronchiectasis within the right middle and lower lobe regions. No bullae or honeycombing. Lung galaviz otherwise clear. No pleural effusion. Trace pericardial fluid. Trachea and central bronchi are widely patent appearing otherwise normal. No thoracic aortic aneurysm. No mediastinal or hilar mass or adenopathy. Limited visualized upper abdomen demonstrates elevation of right diaphragm secondary to mass effect associated with large hepatic cysts. IMPRESSION: Right diaphragm elevated by mass effect associated with very large hepatic cysts. There is only minimal basilar atelectasis. No infiltrate otherwise. Subtle bronchiectasis in the right middle and lower lobe regions. SL:13 06/18/2015 - - Read by: Roberto Ricardo MD Dictated Date/time: 06/18/15 16:59 Electronically Signed by: Roberto Ricardo MD 06/18/15 17:03 FINAL REPORT [facility] Vital Signs Vital Sign Value Date Comments Source Respitory Rate 18 01/10/2018 [facility] Heart Rate 70 01/10/2018 [facility] Diastolic (mm Hg) 74 01/10/2018 [facility] Temperature Oral (F) 98.0 F 01/10/2018 [facility] Systolic (mm Hg) 113 01/10/2018 [facility] Systolic (mm Hg) 124 01/10/2018 [facility] Diastolic (mm Hg) 71 01/10/2018 [facility] Respitory Rate 16 01/10/2018 [facility] Temperature Oral (F) 97.9 F 01/10/2018 [facility] Heart Rate 63 01/10/2018 [facility] Systolic (mm Hg) 116 01/09/2018 [facility] Diastolic (mm Hg) 64 01/09/2018 [facility] Respitory Rate 16 01/09/2018 [facility] Heart Rate 66 01/09/2018 [facility] Temperature Oral (F) 98.2 F 01/09/2018 [facility] BMI Calculated 29.07 01/04/2018 [facility] Weight 84.182 01/04/2018 [facility] Height 170.18 cm 01/04/2018 [facility] Height 170.18 cm 01/04/2018 [facility] Weight 78.636 01/04/2018 [facility] BMI Calculated 27.15 01/04/2018 [facility] Respitory Rate 18 01/03/2018 [facility] Systolic (mm Hg) 138 01/03/2018 [facility] Diastolic (mm Hg) 67 01/03/2018 [facility] Heart Rate 80 01/03/2018 [facility] Temperature Oral (F) 98.7 F 01/03/2018 [facility] Systolic (mm Hg) 133 01/03/2018 [facility] Diastolic (mm Hg) 60 01/03/2018 [facility] Respitory Rate 18 01/03/2018 [facility] Heart Rate 71 01/03/2018 [facility] Temperature Oral (F) 98.5 F 01/03/2018 [facility] Respitory Rate 16 01/03/2018 [facility] Systolic (mm Hg) 135 01/03/2018 [facility] Diastolic (mm Hg) 61 01/03/2018 [facility] Temperature Oral (F) 98.4 F 01/03/2018 [facility] Heart Rate 72 01/03/2018 [facility] BMI Calculated 28.25 12/31/2017 [facility] Weight 81.818 12/31/2017 [facility] Height 170.18 cm 12/31/2017 [facility] Heart Rate 70 11/16/2015 [facility] Respitory Rate 16 11/16/2015 [facility] Temperature Oral (F) 99.0 F 11/16/2015 [facility] Systolic (mm Hg) 147 11/16/2015 [facility] Diastolic (mm Hg) 74 11/16/2015 [facility] Systolic (mm Hg) 152 11/16/2015 [facility] Diastolic (mm Hg) 72 11/16/2015 [facility] Temperature Oral (F) 97.5 F 11/16/2015 [facility] Heart Rate 67 11/16/2015 [facility] Respitory Rate 16 11/16/2015 [facility] Respitory Rate 12 11/16/2015 [facility] Systolic (mm Hg) 128 11/16/2015 [facility] Diastolic (mm Hg) 73 11/16/2015 [facility] Temperature Oral (F) 98.0 F 11/16/2015 [facility] Heart Rate 76 11/16/2015 [facility] Height 172.72 cm 11/14/2015 [facility] BMI Calculated 27.18 11/14/2015 [facility] Weight 81.08 11/14/2015 [facility] Height 165.1 cm 11/13/2015 [facility] Weight 79.091 11/13/2015 [facility] BMI Calculated 29.02 11/13/2015 [facility] Encounters Location Location Details Encounter Type Encounter Number Reason For Visit Attending Provider ADM Date DC Date Status Source [facility] Outpatient [id number] Abhishek Juares 06/18/2015 06/19/2015 [facility] Inpatient [id number] Ariela Holt 11/13/2015 11/16/2015 [facility] Outpatient [id number] Abhishek Juares 11/21/2016 11/22/2016 [facility] Inpatient [id number] Karey Vaz 12/31/2017 01/04/2018 [facility] [id number] Michael Post Jr 01/04/2018 01/10/2018 [facility] OP Therapy Patients [id number] Vern Mars 01/15/2018 02/14/2018 [facility] Procedures Procedure Code Date Perfomer Comments Source Cystectomy [id number] 12/12/2017 [facility] Cystectomy [id number] 12/12/2017 [facility] Knee replacement [id number] [facility] Knee replacement [id number] [facility]
--- OUTSIDE RECORDS SUMMARY | 2018-06-04 14:15 | XMS REPORT | Summary of Care ---
Author Author [facility] Organization [facility] Address Unknown Phone Unavailable Encounter [facility]tr_[facility](KAJAL) [id number] Date(s): 06/18/15 - 06/18/15 [facility] [address] [place] [address]- Discharge Disposition: Home Attending Physician: Abhishek Juares MD Referring Physician: Abhishek Juares MD Vital Signs No data available for this section Problem List No data available for this section Allergies, Adverse Reactions, Alerts Substance Reaction Severity Status Bextra Active Cipro Active Medications No data available for this section Results No data available for this section Immunizations Vaccine Date Refusal Reason influenza virus vaccine, inactivated 05/30/09 pneumococcal 23-valent vaccine 05/30/09 Procedures No data available for this section Social History No data available for this section Assessment and Plan No data available for this section
--- OUTSIDE RECORDS SUMMARY | 2018-06-04 14:16 | XMS REPORT | Summary of Care ---
Author Author [facility] Address Unknown Phone Unavailable Encounter KALA Ellis(KAJAL) [id number] Date(s): 01/15/18 - 02/13/18 [facility] Encounter Diagnosis Stiffness of left hip, not elsewhere classified (Final) - Pain in left hip (Final) - Weakness (Final) - Other abnormalities of gait and mobility (Final) - Discharge Disposition: Home or Self Care Attending Physician: Vern Mars Vital Signs No data available for this section Problem List Condition Effective Dates Status Health Status Informant Renal Active insufficiency(Confir med) Femoral neck Active fracture(Confirmed) Hypertension(Confirm Active ed) Hypothyroidism(Confi Active rmed) Pain due to total Active hip replacement(Confirme d) Vitamin D Active deficiency(Confirmed ) Vocal cord Active cyst(Confirmed) Allergies, Adverse Reactions, Alerts Substance Reaction Severity Status Cipro Active Bactrim Active Bextra Active Medications No data available for this [...] No entered on: 01/03/18 Assessment and Plan No data available for this section
--- OUTSIDE RECORDS SUMMARY | 2018-06-04 14:16 | XMS REPORT | Summary of Care ---
Author Author [facility] Organization [facility] Address Unknown Phone Unavailable Encounter KALA Ellis(KAJAL) [id number] Date(s): 12/31/17 - 01/03/18 [facility] [address] [place] [address]- [phone] Discharge Disposition: DC/DISC TO REHAB Attending Physician: Karey Vaz MD Admitting Physician: Karey Vaz MD Vital Signs 1 2 3 Most recent to oldest [Reference Range]: 170.18 cm (12/31/17 11:56 AM) Height 98.7 DegF (01/03/18 4:00 PM) 98.5 DegF (01/03/18 12:00 PM) 98.4 DegF (01/03/18 8:00 AM) Temperature Oral [96.4-99.1 DegF] 138/67 mmHg (01/03/18 4:00 PM) 133/60 mmHg (01/03/18 12:00 PM) 135/61 mmHg (01/03/18 8:00 AM) Blood Pressure [90-140/60-90 mmHg] 18 BRMIN (01/03/18 4:00 PM) 18 BRMIN (01/03/18 12:00 PM) 16 BRMIN (01/03/18 8:00 AM) Respiratory Rate [14-20 BRMIN] 80 bpm (01/03/18 4:00 PM) 71 bpm (01/03/18 12:00 PM) 72 bpm (01/03/18 8:00 AM) Peripheral Pulse Rate [60-100 bpm] 81.818 kg (12/31/17 11:56 AM) Weight 28.25 m2 (12/31/17 11:56 AM) Body Mass Index Problem List Condition Effective Dates Status Health Status Informant Renal Active insufficiency(Confir med) Femoral neck Active fracture(Confirmed) Hypertension(Confirm Active ed) Hypothyroidism(Confi Active rmed) 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 (Same as: Tylenol) Start Date: 12/31/17 Stop Date: 01/03/18 Status: Discontinued acetaminophen (ANES) Route: IV, Drug form: INJ, ONCE, Stop date: 01/01/18 14:32:00 CDT Start Date: 01/01/18 Stop Date: 01/01/18 Status: Completed acetaminophen-hydrocodone 325 mg-5 mg oral tablet 1 tab, Route: PO, Drug Form: TAB, Dosing Weight 81.818, kg, Q4H, PRN Pain Score 4-6, Start date: 12/31/17 17:02:00 CDT, Duration: 30 day, Stop date: 01/30/18 17 :01:00 CDT Notes: (Same as: [place] 325/5) Do not exceed 4gm/day of acetaminophen. Start Date: 12/31/17 Stop Date: 01/02/18 Status: Discontinued Ancef + sterile water 20 mL 2 gm, Route: IVP, [id number], Dosing Weight 81.818, kg, Start date: 01/01/18 22:00:0 0 CDT, Duration: 1 day, Stop date: 01/02/18 14:00:00 CDT, ABX Indication: Surgic al Prophylaxis Notes: (Same As: Ancef, Kefzol) MEDICATION WASTE Product Size: 1000 mgP roduct Wasted: ___ mg Start Date: 01/01/18 Stop Date: 01/02/18 Status: Completed atorvastatin 10 mg, PO, Daily, 0 Refill(s) Start Date: 12/31/17 Status: Suspended calcium carbonate 500 mg, 1 tab, Route: PO, Drug form: TAB, BID, Dosing Weight 81.818, kg, Start d ate: 01/01/18 17:00:00 CDT, Duration: 30 day, Stop date: 01/31/18 9:00:00 CDT Notes: 500mg elemental [id number] calcium carbonate. Contains 500mg element al calcium. (Same As: OsCal 500) Start Date: 01/01/18 Stop Date: 01/03/18 Status: Discontinued calcium carbonate 500 mg (200 mg elemental calcium) oral tablet 500 mg, PO, BID, 0 Refill(s) Start Date: 01/03/18 Status: Suspended ceFAZolin (ANES) Route: IV, Drug form: INJ, ONCE, Stop date: 01/01/18 14:32:00 CDT Start Date: 01/01/18 Stop Date: 01/01/18 Status: Completed dexamethasone (ANES) Route: IV, Drug form: INJ, ONCE, Stop date: 01/01/18 14:32:00 CDT Start Date: 01/01/18 Stop Date: 01/01/18 Status: Completed Dilaudid 1 mg, 1 mL, Route: IVP, Drug form: SOLN, ONCE, Dosing Weight 81.818, kg, Priorit y: STAT, Start date: 12/31/17 13:37:00 CDT, Stop date: 12/31/17 13:37:00 CDT Notes: (Same as: Dilaudid) Start Date: 12/31/17 Stop Date: 12/31/17 Status: Completed Dilaudid 1 mg, 1 mL, Route: IVP, Drug form: SOLN, Q4H, Dosing Weight 81.818, kg, PRN Pain Score 7-10, Start date: 12/31/17 17:10:00 CDT, Duration: 30 day, Stop date: 17:09:00 CDT Notes: (Same as: Dilaudid) Start Date: 12/31/17 Stop Date: 01/02/18 Status: Discontinued docusate-senna 50 mg-8.6 mg oral tablet 1 tab, PO, BID, 0 Refill(s) Start Date: 01/03/18 Status: Suspended docusate-senna 50 mg-8.6 mg oral tablet 1 tab, Route: PO, Drug Form: TAB, Dosing Weight 81.818, kg, BID, Start date: 9:00:00 CDT, Duration: 30 day, Stop date: 02/01/18 17:00:00 CDT Notes: (Same as Senokot-S) Equiv. to Skylar-Colace. Start Date: 01/03/18 Stop Date: 01/03/18 Status: Discontinued Dulcolax Laxative 10 mg, 1 supp, Route: NH, Drug form: SUPP, ONCE, Dosing Weight 81.818, kg, Start date: 01/03/18 8:28:00 CDT, Stop date: 01/03/18 8:28:00 CDT Notes: (Same As: Dulcolax, Bisco-Lax) Start Date: 01/03/18 Stop Date: 01/03/18 Status: Completed enoxaparin 30 mg, Route: SUB-Q, Drug form: INJ, [id number], Dosing Weight 81.818, kg, Start d ate: 01/01/18 15:00:00 CDT, Stop date: 01/31/18 3:00:00 CDT Start Date: 01/01/18 Stop Date: 01/01/18 Status: Canceled enoxaparin 40 mg/0.4 mL subcutaneous solution 40 mg=0.4 mL, SUB-Q, [id number], 0 Refill(s) Start Date: 01/03/18 Status: Suspended ergocalciferol 50,000 IntlUnit, 1 cap, Route: PO, Drug form: CAP, Q7D, Dosing Weight 81.818, kg , Start date: 01/02/18 9:00:00 CDT, Duration: 30 day, Stop date: 01/30/18 9:00:0 0 CDT Notes: (Same as: Vitamin D) "Do Not Crush" Start Date: 01/02/18 Stop Date: 01/03/18 Status: Discontinued ergocalciferol 50,000 intl units oral capsule 50,000 IntlUnit=1 cap, PO, Q7D, 0 Refill(s) Start Date: 01/03/18 Status: Suspended esmolol (ANES) Route: IV, Drug form: INJ, ONCE, Stop date: 01/01/18 14:37:00 CDT Start Date: 01/01/18 Stop Date: 01/01/18 Status: Completed fentaNYL 50 microgram, Route: IVP, ONCE, Dosing Weight 81.818, kg, Priority: STAT, Start date: 12/31/17 14:05:00 CDT, Stop date: 12/31/17 14:05:00 CDT Start Date: 12/31/17 Stop Date: 12/31/17 Status: Completed fentaNYL (ANES) Route: IV, Drug form: INJ, ONCE, Stop date: 01/01/18 14:27:00 CDT Start Date: 01/01/18 Stop Date: 01/01/18 Status: Completed glycopyrrolate (ANES) Route: IV, Drug form: INJ, ONCE, Stop date: 01/01/18 14:59:00 CDT Start Date: 01/01/18 Stop Date: 01/01/18 Status: Completed hydrALAZINE 10 mg, 0.5 mL, Route: IVP, Drug form: INJ, Q6H, Dosing Weight 81.818, kg, PRN El evated BP, Start date: 12/31/17 17:01:00 CDT, Duration: 30 day, Stop date: 01/30 17:00:00 CDT, systolic greater than 170 mm Hg Notes: (Same as: Apresoline)Push over 5 minutes Start Date: 12/31/17 Stop Date: 01/03/18 Status: Discontinued Lactated Ringers Injection IV (ANES) 1000 mL Route: IV, Total Volume: 1,000, Start date: 01/01/18 13:27:00 CDT, Stop date: 14:27:00 CDT Start Date: 01/01/18 Stop Date: 01/01/18 Status: Completed lidocaine (ANES) Route: IV, Drug form: INJ, ONCE, Stop date: 01/01/18 14:27:00 CDT Start Date: 01/01/18 Stop Date: 01/01/18 Status: Completed lidocaine topical patch (5% film) 1 patch, Route: TOP, Daily, Drug form: FILM, Start date: 01/02/18 14:00:00 CDT, Duration: 30 day, Stop date: 02/01/18 9:00:00 CDT Notes: Apply only once for up to 12 hours in [id number] period (12 hours on and 12 hours off).(Same as: Lidoderm)"Remove old patch before application of new patch" Start Date: 01/02/18 Stop Date: 01/03/18 Status: Discontinued Lovenox 40 mg, 0.4 mL, Route: SUB-Q, Drug form: INJ, [id number], Dosing Weight 81.818, kg, Start date: 01/02/18 12:00:00 CDT, Duration: 14 day, Stop date: 01/15/18 12:00: 00 CDT Notes: (Same as: Lovenox) Start Date: 01/02/18 Stop Date: 01/03/18 Status: Discontinued metoprolol extended release 25 mg, PO, Daily, 0 Refill(s) Start Date: 12/31/17 Status: Suspended morphine Sulfate 2 mg, Route: IVP, Q4H, Dosing Weight 81.818, kg, PRN Pain Score 7-10, Start date : 12/31/17 17:02:00 CDT, Duration: 30 day, Stop date: 01/30/18 17:01:00 CDT Start Date: 12/31/17 Stop Date: 12/31/17 Status: Discontinued morphine Sulfate 4 mg, 1 mL, Route: IVP, Drug form: SOLN, ONCE, Dosing Weight 81.818, kg, Priorit y: STAT, Start date: 12/31/17 12:05:00 CDT, Stop date: 12/31/17 12:05:00 CDT Notes: (Same as:MORPhine Sulfate) Start Date: 12/31/17 Stop Date: 12/31/17 Status: Completed neostigmine (ANES) Route: IV, Drug form: INJ, ONCE, Stop date: 01/01/18 15:00:00 CDT Start Date: 01/01/18 Stop Date: 01/01/18 Status: Completed NS (Bolus) IV 500 mL, 500 ml/hr, Infuse Over: 1 hr, Route: IV, 500, Drug form: INJ, ONCE, Prio rity: STAT, Dosing Weight 81.818 kg, Start date: 12/31/17 12:04:00 CDT, Stop jinny e: 12/31/17 12:04:00 CDT Start Date: 12/31/17 Stop Date: 12/31/17 Status: Completed ondansetron 4 mg, 2 mL, Route: IVP, Drug form: INJ, Q6H, Dosing Weight 81.818, kg, PRN Nause a & Vomiting, Start date: 12/31/17 17:02:00 CDT, Duration: 30 day, Stop date: 01/30/18 17:01:00 CDT Notes: (Same as: Ashvin) MEDICATION WASTE Product Size: 4 mgProduct Was macarena: ___ mg Start Date: 12/31/17 Stop Date: 01/03/18 Status: Discontinued ondansetron (ANES) Route: IV, Drug form: INJ, ONCE, Stop date: 01/01/18 14:32:00 CDT Start Date: 01/01/18 Stop Date: 01/01/18 Status: Completed pantoprazole 40 mg, PO, BID, # 30 tab, 0 Refill(s) Start Date: 12/31/17 Stop Date: 01/30/18 Status: Suspended pneumococcal 13-valent vaccine 0.5 mL, Route: IM, Drug Form: INJ, Daily, Start date: 01/01/18 9:00:00 CDT, Dura tion: 1 doses or times, Stop date: 01/01/18 9:00:00 CDT Notes: Shake well prior to use (Same as: Prevnar 13) Start Date: 01/01/18 Stop Date: 01/01/18 Status: Completed propofol (ANES) Route: IV, Drug form: INJ, ONCE, Stop date: 01/01/18 14:27:00 CDT Start Date: 01/01/18 Stop Date: 01/01/18 Status: Completed CECE Pericapsular INJ 100 mL, Route: InFILtration(local), Drug Form: INJ, Dosing Weight 81.818, kg, 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 Start Date: 01/03/18 Stop Date: 01/03/18 Status: Discontinued rocuronium (ANES) Route: IV, Drug form: INJ, ONCE, Stop date: 01/01/18 14:27:00 CDT Start Date: 01/01/18 Stop Date: 01/01/18 Status: Completed Saline Flush 0.9% 10 ml, Route: IVP, Drug Form: INJ, Dosing Weight 81.818, kg, PRN, PRN Line Flush , Start date: 12/31/17 17:02:00 CDT, Duration: 30 day, Stop date: 01/30/18 17:01 :00 CDT Notes: (Same as: BD Posiflush) Start Date: 12/31/17 Stop Date: 01/03/18 Status: Discontinued Sodium Chloride 0.9% IV 1,000 mL 1,000 mL, Rate: 75 ml/hr, Infuse over: 13.3 hr, Route: IV, Dosing Weight 81.818 kg, Total Volume: 1,000, Start date: 12/31/17 17:02:00 CDT, Duration: 30 day, St op date: 01/30/18 17:01:00 CDT, 1.99, m2 Start Date: 12/31/17 Stop Date: 01/03/18 Status: Discontinued Synthroid 100 microgram, 1 tab, Route: PO, Drug form: TAB, [id number], Dosing Weight 81.818, k g, Start date: 01/01/18 6:30:00 CDT, Duration: 30 day, Stop date: 01/30/18 6:30: 00 CDT Notes: Take 1 hour before or 2 hours after meal; Enteral feeds may interefere wi th the absorption of this medication. (Same as:Levothroid, Synthroid) Start Date: 01/01/18 Stop Date: 01/03/18 Status: Discontinued tramadol 25 mg, 0.5 tab, Route: PO, Drug form: TAB, Q4H, Dosing Weight 81.818, kg, PRN Pa in Score 4-6, Start date: 01/02/18 12:41:00 CDT, Duration: 30 day, Stop date: 12:40:00 CDT Notes: Not to exceed 400mg/day. (Same As: Ultram) Start Date: 01/02/18 Stop Date: 01/03/18 Status: Discontinued tramadol 50 mg oral tablet 50 mg, 1 tab, Route: PO, Drug form: TAB, Q4H, Dosing Weight 81.818, kg, PRN Pain Score 7-10, Start date: 01/02/18 12:41:00 CDT, Duration: 30 day, Stop date: 12:40:00 CDT Notes: Not to exceed 400mg/day. (Same As: Ultram) Start Date: 01/02/18 Stop Date: 01/03/18 Status: Discontinued tramadol 50 mg oral tablet 50 mg=1 tab, PO, Q4H, PRN Pain Score 7-10, 0 Refill(s) Start Date: 01/03/18 Status: Suspended tranexamic acid (ANES) Route: IV, Drug form: INJ, ONCE, Stop date: 01/01/18 14:32:00 CDT Start Date: 01/01/18 Stop Date: 01/01/18 Status: Completed Tylenol 1,000 mg, 2 tab, Route: PO, Drug form: TAB, TID, Dosing Weight 81.818, kg, Start date: 01/02/18 18:00:00 CDT, Duration: 30 day, Stop date: 02/01/18 12:00:00 CDT Notes: Max acetaminophen 4000 mg/day (4 gm/day). (Same as: Tylenol Extra Streng th) Start Date: 01/02/18 Stop Date: 01/03/18 Status: Discontinued vancomycin (ANES) Route: IV, Drug form: INJ, ONCE, Stop date: 01/01/18 14:32:00 CDT Start Date: 01/01/18 Stop Date: 01/01/18 Status: Completed Zofran 4 mg, 2 mL, Route: IVP, Drug form: INJ, ONCE, Dosing Weight 81.818, kg, Priority : STAT, Start date: 12/31/17 12:05:00 CDT, Stop date: 12/31/17 12:05:00 CDT Notes: (Same as: Zofran) MEDICATION WASTE Product Size: 4 mgProduct Was macarena: ___ mg Start Date: 12/31/17 Stop Date: 12/31/17 Status: Completed Zofran ODT 4 mg, Route: PO, Drug form: TABDIS, ONCE, Dosing Weight 81.818, kg, Priority: ST AT, Start date: 12/31/17 13:57:00 CDT, Stop date: 12/31/17 13:57:00 CDT Start Date: 12/31/17 Stop Date: 12/31/17 Status: Completed Results BLOOD BANK RESULTS Most recent to 1 2 oldest [Reference Range]: ABO/Rh O POS *Unknown* (12/31/17 2:51 PM) Antibody Scrn Negative (12/31/17 2:51 PM) ELECTROLYTES Most recent to 1 2 oldest [Reference Range]: Sodium Lvl [135-145 140 mEq/L 141 mEq/L mEq/L] (01/02/18 5:51 AM) (12/31/17 2:51 PM) Potassium Lvl 4.5 mEq/L 3.9 mEq/L [3.5-5.1 mEq/L] (01/02/18 5:51 AM) (12/31/17 2:51 PM) Chloride Lvl [95-109 106 mEq/L 104 mEq/L mEq/L] (01/02/18 5:51 AM) (12/31/17 2:51 PM) CO2 [24-32 mEq/L] 31 mEq/L 29 mEq/L (01/02/18 5:51 AM) (12/31/17 2:51 PM) AGAP [10.0-20.0 7.5 mEq/L 11.9 mEq/L mEq/L] *LOW* (12/31/17 2:51 PM) (01/02/18 5:51 AM) CHEM PANEL Most recent to 1 2 oldest [Reference Range]: Creatinine Lvl 1.12 mg/dL 1.05 mg/dL [0.50-1.40 mg/dL] (01/02/18 5:51 AM) (12/31/17 2:51 PM) eGFR 49 mL/min/1.73m2 1 52 mL/min/1.73m2 2 *NA* *NA* (01/02/18 5:51 AM) (12/31/17 2:51 PM) BUN [7-22 mg/dL] 20 mg/dL 20 mg/dL (01/02/18 5:51 AM) (12/31/17 2:51 PM) Glucose Lvl [70-99 117 mg/dL 101 mg/dL mg/dL] *HI* *HI* (01/02/18 5:51 AM) (12/31/17 2:51 PM) Calcium Lvl 7.9 mg/dL 8.7 mg/dL [8.5-10.5 mg/dL] *LOW* (12/31/17 2:51 PM) (01/02/18 5:51 AM) Vitamin D, 25-OH, 56.4 ng/mL Total [30.0-100.0 (12/31/17 6:44 PM) ng/mL] 1Result Comment: The eGFR is calculated [...] be mul tiplied by the estimated BMI. PARATHYROID PROFILE Most recent to 1 2 oldest [Reference Range]: Ca Ion WB [1.05-1.25 1.10 mMol/L mMol/L] (12/31/17 6:44 PM) Ca Norm WB 1.06 mMol/L [1.05-1.25 mMol/L] (12/31/17 6:44 PM) PTH Intact 112.8 pg/mL [18.4-80.1 pg/mL] *HI* (12/31/17 6:44 PM) HEMATOLOGY Most recent to 1 2 oldest [Reference Range]: WBC [3.7-10.4 K/CMM] 8.2 K/CMM 9.6 K/CMM (01/02/18 5:51 AM) (12/31/17 2:51 PM) RBC [4.20-5.40 3.12 M/CMM 3.94 M/CMM M/CMM] *LOW* *LOW* (01/02/18 5:51 AM) (12/31/17 2:51 PM) Hgb [12.0-16.0 g/dL] 10.1 g/dL 12.7 g/dL *LOW* (12/31/17 2:51 PM) (01/02/18 5:51 AM) Hct [36.0-48.0 %] 30.3 % 37.9 % *LOW* (12/31/17 2:51 PM) (01/02/18 5:51 AM) MCV [80.0-98.0 fL] 97.3 fL 96.2 fL (01/02/18 5:51 AM) (12/31/17 2:51 PM) MCH [27.0-31.0 pg] 32.5 pg 32.3 pg *HI* *HI* (01/02/18 5:51 AM) (12/31/17 2:51 PM) MCHC [32.0-36.0 33.4 g/dL 33.6 g/dL g/dL] (01/02/18 5:51 AM) (12/31/17 2:51 PM) RDW [11.5-14.5 %] 15.1 % 15.3 % *HI* *HI* (01/02/18 5:51 AM) (12/31/17 2:51 PM) MPV [7.4-10.4 fL] 7.2 fL 7.0 fL *LOW* *LOW* (01/02/18 5:51 AM) (12/31/17 2:51 PM) Platelet [133-450 161 K/CMM 219 K/CMM K/CMM] (01/02/18 5:51 AM) (12/31/17 2:51 PM) Segs [45.0-75.0 %] 87.5 % 89.5 % *HI* *HI* (01/02/18 5:51 AM) (12/31/17 2:51 PM) Lymphocytes 5.8 % 6.1 % [20.0-40.0 %] *LOW* *LOW* (01/02/18 5:51 AM) (12/31/17 2:51 PM) Monocytes [2.0-12.0 6.5 % 4.3 % %] (01/02/18 5:51 AM) (12/31/17 2:51 PM) Eosinophils [0.0-4.0 0.1 % %] (01/02/18 5:51 AM) Basophils [0.0-1.0 0.1 % 0.1 % %] (01/02/18 5:51 AM) (12/31/17 2:51 PM) Segs-Bands # 7.1 K/CMM 8.5 K/CMM [1.5-8.1 K/CMM] (01/02/18 5:51 AM) *HI* (12/31/17 2:51 PM) Lymphocytes # 0.5 K/CMM 0.6 K/CMM [1.0-5.5 K/CMM] *LOW* *LOW* (01/02/18 5:51 AM) (12/31/17 2:51 PM) Monocytes # [0.0-0.8 0.5 K/CMM 0.4 K/CMM K/CMM] (01/02/18 5:51 AM) (12/31/17 2:51 PM) PT [12.0-14.7 13.8 seconds seconds] (12/31/17 2:51 PM) INR [0.85-1.17] 1.06 (12/31/17 2:51 PM) PTT [22.9-35.8 27.5 seconds seconds] (12/31/17 2:51 PM) Immunizations Given and Recorded Vaccine Date Status [...]
--- OUTSIDE RECORDS SUMMARY | 2018-06-04 14:16 | XMS REPORT ---
Author Author [facility] Address Unknown Phone Unavailable Care Team Providers Care Spreader Operator Name Role Phone CIRILO KING Unavailable Unavailable LION HOOD Unavailable Unavailable Problems This patient has no known problems. Allergies, Adverse Reactions, Alerts This patient has no known allergies or adverse reactions. Medications This patient has no known medications. Results Test Description Test Time Test Comments Text Results Atomic Results Result Comments CHEST 2 VIEWS 2018-05-31 15:03:00 [place] [address] Patient Name: OCTAVIA LOPEZ MR #: [id number] : 1945 Age/Sex: 72/F Req #: [id number] Adm Physician: Ordered by: CIRILO KING MD Report #: [id number] Location: OR Room/Bed: Procedure: [id number] DX/CHEST 2 VIEWS Exam Date: 05/31/18 Exam Time: 1330 REPORT STATUS: Signed EXAMINATION: CHEST 2 VIEWS INDICATION: COMPARISON: Chest radiograph 11/25/2015 FINDINGS: PA and lateral views TUBES and LINES: None. LUNGS: Lungs are well inflated. Subsegmental atelectasis in the right and left lower lobe, unchanged. There is no evidence of pneumonia or pulmonary edema. PLEURA: No pleural effusion or pneumothorax. Left pleural effusion has resolved. HEART AND MEDIASTINUM: The cardiomediastinal silhouette is unremarkable. BONES AND SOFT TISSUES: No acute osseous lesion. Soft tissues are unremarkable. Persistent mild elevation of the right hemidiaphragm. UPPER ABDOMEN: No free air under the diaphragm. IMPRESSION: No acute thoracic abnormality. There is stable bibasilar atelectasis. Signed by: Dr. Audra Ashley M.D. on 05/31/2018 3:04 PM Dictated By: AUDRA ASHLEY MD 1506 Transcribed By: SID on 05/31/18 1507 COPY TO: CIRILO KING MD CT ABDOMEN/PELVIS W [place] [address] Patient Name: OCTAVIA LOPEZ MR #: [id number] : 1945 Age/Sex: 71/F Req #: [id number] Adm Physician: Ordered by: LION HOOD MD Report #: [id number] Location: CT Room/Bed: Procedure: [id number] CT/CT ABDOMEN/PELVIS W Exam Date: 07/20/17 Exam Time: 1130 REPORT STATUS: Signed PROCEDURE: CT ABDOMEN AND PELVIS WITH CONTRAST TECHNIQUE: The abdomen and pelvis were scanned utilizing a multidetector helical scanner from the diaphragm to the lesser trochanter after the IV administration of 100 cc of Isovue 370 and the oral administration of 900 cc of water/Gastrografin. Coronal and sagittal multiplanar reformations were obtained. DLP: 589.53 mGy-cm COMPARISON: Abdominal CT 11/24/2015 INDICATIONS: ABDOMINAL PAIN, DIVERTICULITIS FINDINGS: LOWER THORAX: Normal. Resolution of left pleural effusion noted on 11/24/2015. HEPATOBILIARY: Numerous hepatic cysts are again noted which measure up to 10.1 cm. No biliary ductal dilatation. SPLEEN: No splenomegaly. PANCREAS: No focal masses or ductal dilatation. ADRENALS: No adrenal nodules. KIDNEYS/URETERS: No hydronephrosis, stones, or solid mass lesions. Subcentimeter hypodensities in both kidneys are too small to characterize but statistically likely cysts. PELVIC ORGANS/BLADDER: Hysterectomy. No adnexal masses. Otherwise, unremarkable. PERITONEUM / RETROPERITONEUM: No free air or fluid. LYMPH NODES: No lymphadenopathy. VESSELS: Unremarkable. GI TRACT: No distention or wall thickening. Appendix not visualized. Scattered colonic diverticula without evidence diverticulitis. Approximately 3.9 cm diverticulum off the third duodenal segment. BONES AND SOFT TISSUES: Glut eal injection granulomas. Healed fractures of multiple left ribs. Degenerative changes of the spine. No acute osseous abnormalities. IMPRESSION: 1. No acute abnormalities in the abdomen and pelvis. 2. Colonic diverticula without evidence of diverticulitis. 3. Duodenal diverticulum. 4. Numerous hepatic cysts. 5. Resolution of the previous acute posttraumatic findings on CT 11/24/2015. Dictated by: Patrick Ta M.D. on 07/20/2017 at 12:51 Electronically approved by: Patrick Ta M.D. on 07/20/2017 at 12:51 Dictated By: PATRICK TA MD 1251 Transcribed By: GARRY on 07/20/17 1251 COPY TO: LION HOOD MD
== END | disposition home or self-care (01) ==
LOC: OR 07:07
PROVIDERS: ATTEND Specialist
DX: S52.571A Other intraarticular fracture of lower end of right radius, initial encounter for closed fracture (principal); M80.00XA Age-related osteoporosis with current pathological fracture, unspecified site, initial encounter for fracture; I10 Essential (primary) hypertension; E03.9 Hypothyroidism, unspecified; J34.9 Unspecified disorder of nose and nasal sinuses; R06.02 Shortness of breath; K21.9 Gastro-esophageal reflux disease without esophagitis; I45.10 Unspecified right bundle-branch block; W18.39XA Other fall on same level, initial encounter; Y92.89 Other specified places as the place of occurrence of the external cause; Z01.810 Encounter for preprocedural cardiovascular examination; Z01.812 Encounter for preprocedural laboratory examination; Z01.818 Encounter for other preprocedural examination
CPT/HCPCS: 25608; 36415; 71046; 80048; 85025; 93005; C1713 ×5; J0131; J0690; J1100; J2001; J2250; J2405; J2704; J3490; 76001